=== PATIENT | female | born 1945 | race Caucasian/White ===

== ENCOUNTER 2017-01-04 13:00 | Inpatient (IN) | payer MEDICARE ==
[~2017-01-04] VITALS: Ht 152.4 cm; Wt 55.0 kg
[2017-01-11] MEDS ORDERED: COLA100C3 PO (10:13)
[2017-01-11] MEDS ORDERED: PANT40TA3 PO (10:13)
[2017-01-11] MEDS ORDERED: LISI10TA3 PO (10:13)
[2017-01-11] MEDS ORDERED: SERT-129 PO (10:13)
[2017-01-18] VITALS (7 sets, daily range): BP systolic 141–163; BP diastolic 79–92; PULSE 84–92; RESP 16–18; TEMP 97.9–98.1; O2SAT 95–99
[2017-01-18] MEDS ORDERED: DEXT 5%-NACL 0.9% 1000 ML INJ 1,000 ML IV SCH (11:45)
[2017-01-18] MEDS ORDERED: METRONIDAZOLE 500 MG/100 ML ISONTONIC SOLN IV SCH (11:45)
[2017-01-18] MEDS ORDERED: ceFAZolin 1,000 MG/NS 100 ML IV SCH ×2 (11:45)
[2017-01-18] MEDS ORDERED: ALVIMOPAN 12 MG CAPSULE - On Call PO SCH (12:00)
[2017-01-18] MEDS ORDERED: POVIDONE IODINE 5% (ANTISEPSIS KIT) 4 APPLICATIONS EACH NARE PRN (12:15)
[2017-01-18] MEDS ORDERED: SODIUM CHLORID 0.9% 500 ML IV PRN (12:15)
[2017-01-18] MEDS ORDERED: LACTATED RINGER'S 1000 ML IV PRN (12:15)
[2017-01-18] MEDS ORDERED: CHLORHEXIDINE GLUCONATE 2 % 1 PACK (2 CLOTHS) TOPICAL PRN (12:15)
[2017-01-18] MEDS ORDERED: METOPROLOL TARTRATE 25 MG TAB PO PRN (12:15)
[2017-01-18] MEDS ORDERED: INSULIN HUMAN REGULAR 1,000 UNITS/10 ML VIAL SQ PRN (12:15)
--- NOTE | 2017-01-18 12:22 | PD.HP.UP ---
H&P Update Note The Pre-Admit History and Physical Examination regarding the above named patient was reviewed (including, but not limited to, vital signs, heart, lungs, co-morbid conditions), and upon re-examination it is noted that: the patient's condition has not significantly changed since the last examination. Travis Cartwright MD Jan 18, 2017 12:22
[2017-01-18] MEDS ORDERED: FAMOTIDINE 20 MG/2 ML VIAL ONE (13:05)
[2017-01-18] MEDS ORDERED: MIDAZOLAM HCL 2 MG/2 ML VIAL ONE (13:05)
[2017-01-18] MEDS ORDERED: BUPIVACAINE HCL PF 0.5% 30 ML VIAL ONE ×2 (14:05→14:07)
[2017-01-18] MEDS ORDERED: ONDANSETRON HCL 4 MG/2 ML VIAL IV PUSH ONE (14:17)
[2017-01-18] MEDS ORDERED: LACTATED RINGER'S 1000 ML INJ 2,000 ML IV ONE (14:17)
[2017-01-18] MEDS ORDERED: PROPOFOL 200 MG/20 ML AMP IV ONE (14:17)
[2017-01-18] MEDS ORDERED: PHENYLEPH/NS 1000 MCG/10 ML SYR IV ONE (14:17)
[2017-01-18] MEDS ORDERED: NEOSTIGMINE 3 MG/3 ML SYR IV ONE (14:17)
[2017-01-18] MEDS ORDERED: MORPHINE SULFATE 4 MG/ML INJ ONE (14:50)
[2017-01-18] MEDS ORDERED: ACETAMINOPHEN 1000 MG/100 ML VIAL IV ONE (15:26)
[2017-01-18] MEDS: D5-NS + KCL 20 MEQ INJ 1,000 ML IV SCH (16:24)
[2017-01-18] MEDS ORDERED: MORPHINE SULFATE 30 MG/30 ML PCA IV SCH (16:30)
[2017-01-18] MEDS ORDERED: POTASSIUM CHLOR 40 MEQ PREMIX 100 ML IV PRN (16:30)
[2017-01-18] MEDS ORDERED: POTASSIUM CHLOR 20 MEQ PREMIX 100 ML IV PRN (16:30)
[2017-01-18] MEDS ORDERED: Post-op Orders (for Pharmacy) MISC XX ONE (16:30)
[2017-01-18] MEDS ORDERED: BENZOCAINE 6 MG/MENTHOL 10 MG LOZENGE BUCCAL PRN (16:30)
[2017-01-18] MEDS ORDERED: ENALAPRILAT 2.5 MG/2 ML VIAL IV PRN (16:30)
[2017-01-18] MEDS ORDERED: BUPIVACAINE HCL PF 0.5% 30 ML VIAL NB SCH (16:30)
[2017-01-18] MEDS ORDERED: ENALAPRILAT 1.25 MG/ML VIAL IV PRN (16:30)
[2017-01-18] MEDS ORDERED: SODIUM CHLORIDE 0.9% FLUSH 5 ML FLUSH IVF PRN (16:30)
[2017-01-18] MEDS ORDERED: NALOXONE HCL 0.4 MG/ML AMP IV PRN (16:30)
--- NOTE | 2017-01-18 16:32 | HHI.PR ---
Immediate Post Op Note Procedure Date: Jan 18, 2017 Pre Op Diagnosis: Diverticulitis, obstruction Post Op Diagnosis: same Surgeon: Travis Cartwright Manager Audit(s): Cyn Procedure: Expl lap, LAR, SBR, on-table bowel prep Findings: rock hard mass in RS, stuck to pelvic sidewall, small bowel stuck , liver nl, ut /ov nl Complications: none Specimen(s) removed: rectosigm, SB Estimated blood loss: 200cc Anesthesia: General Drains: NESSA IVF Patient to: PACU Patient Condition: Good Travis Cartwright MD Jan 18, 2017 16:32
[2017-01-18] MEDS ORDERED: D5-1/2 NS + KCL 20 MEQ INJ 1,000 ML ONE (16:43)
[2017-01-18] MEDS ORDERED: *ONDANSETRON 4 MG VIAL PERIprocedural Use ONLY ONE (16:49)
[2017-01-18] MEDS ORDERED: METOCLOPRAMIDE HCL 10 MG/2 ML VIAL ONE (17:22)
[2017-01-18] MEDS: METOCLOPRAMIDE HCL 10 MG/2 ML VIAL IVS SCH (17:39)
[2017-01-18] MEDS: SODIUM CHLORIDE 0.9% FLUSH 5 ML FLUSH IVF SCH (21:00)
[2017-01-19] VITALS (13 sets, daily range): BP systolic 91–118; BP diastolic 56–68; PULSE 85–100; RESP 16–20; TEMP 98.4–99.2; O2SAT 93–97
[2017-01-19] MEDS: KETOROLAC TROMETHAMINE 30 MG/ML (IVP) VIAL IVP PRN ×5 (00:27→23:43)
[2017-01-19] MEDS: metroNIDAZOLE 500 MG INJ 100 ML IV SCH ×3 (00:29→12:29)
[2017-01-19] MEDS: D5-NS + KCL 20 MEQ INJ 1,000 ML IV SCH ×4 (00:38→21:26)
[2017-01-19] MEDS: ONDANSETRON HCL 4 MG/2 ML VIAL IV PRN (00:38)
[2017-01-19 06:13] LABS: AUTOMATED NEUTROPHIL # 9.7 TH/MM3 (1.8-7.7); BASOPHIL % 0.3 % (0.0-2.0); HEMATOCRIT 32.7 % (35.0-46.0); HEMO FLAGS DIFF FINAL; LYMPHOCYTE # 0.5 TH/MM3 (1.0-4.8); MEAN CELL VOLUME 95.1 FL (80.0-100.0); MEAN CORPUSCULAR HEMOGLOBIN 31.1 PG (27.0-34.0); MEAN CORPUSCULAR HGB CONC 32.7 % (32.0-36.0); MONO % 6.1 % (0.0-8.0); NEUT % 88.6 % (16.0-70.0); PLATELET COUNT 290 TH/MM3 (150-450); RED BLOOD COUNT 3.43 MIL/MM3 (4.00-5.30); RED CELL DISTRIBUTION WIDTH 14.4 % (11.6-17.2)
[2017-01-19 06:48] LABS: BICARBONATE 29.5 MEQ/L (21.0-32.0); POTASSIUM 4.6 MEQ/L (3.5-5.1)
[2017-01-19] MEDS: PANTOPRAZOLE SODIUM 40 MG VIAL IVP SCH (09:00)
[2017-01-19] MEDS ORDERED: ALVIMOPAN 12 MG CAPSULE - Post-op dosing PO SCH (09:00)
[2017-01-19] MEDS: SODIUM CHLORIDE 0.9% FLUSH 5 ML FLUSH IVF SCH ×2 (09:00→21:00)
[2017-01-19] MEDS: LISINOPRIL 10 MG TAB PO SCH (09:39)
[2017-01-19] MEDS: ACETAMINOPHEN/HYDROcodone 325 MG/5 MG TAB PO PRN ×2 (09:39→21:25)
[2017-01-19] MEDS: ALVIMOPAN 12 MG CAPSULE PO SCH ×2 (09:41→21:25)
[2017-01-19] MEDS: PANTOPRAZOLE SOD 40 MG DELAYED RELEASE TAB PO SCH (09:42)
[2017-01-19] MEDS: METOCLOPRAMIDE HCL 10 MG/2 ML VIAL IVS SCH ×2 (09:42→21:24)
[2017-01-19] MEDS: SERTRALINE HCL 100 MG TAB PO SCH (09:43)
[2017-01-19] MEDS: PCA - TOTAL MG MORPHINE DELIVERED PER SHIFT SCH ×2 (14:00→21:26)
[2017-01-19] MEDS: HEPARIN SODIUM - SQ 10,000 UNITS/ML VIAL SQ SCH (16:21)
[2017-01-19] MEDS: FUROSEMIDE 20 MG/2 ML VIAL IV PUSH SCH (18:00)
--- NOTE | 2017-01-19 22:04 | HHI.PR ---
Subjective Remarks C/R Surg POD #1 afebrile, VSS UO fair NESSA mod Objective - Vital Signs Date Time Temp Pulse Resp B/P Pulse Ox O2 Delivery O2 Flow Rate FiO2 01/19/17 21:26 18 01/19/17 21:21 98.6 100 115/68 94 01/19/17 16:10 21 01/19/17 04:51 Nasal Cannula 2.00 Result Diagram: 01/19/17 0530 01/19/17 0530 Objective Remarks PE alert Abd - soft, wound dry, min tympany A/P Assessment and Plan Imp: stable post - op OOB decr IVF resp tx Travis Cartwright MD Jan 19, 2017 22:04
[2017-01-20] VITALS (7 sets, daily range): BP systolic 122–139; BP diastolic 58–75; PULSE 85–100; RESP 16–20; TEMP 98.1–100.3; O2SAT 92–97
[2017-01-20] MEDS: HEPARIN SODIUM - SQ 10,000 UNITS/ML VIAL SQ SCH ×2 (04:56→18:22)
[2017-01-20] MEDS: ACETAMINOPHEN/HYDROcodone 325 MG/5 MG TAB PO PRN ×3 (04:56→19:58)
[2017-01-20] MEDS: PCA - TOTAL MG MORPHINE DELIVERED PER SHIFT SCH (04:57)
[2017-01-20] MEDS: FUROSEMIDE 20 MG/2 ML VIAL IV PUSH SCH ×2 (05:59→18:16)
[2017-01-20 06:28] LABS: AUTOMATED NEUTROPHIL # 8.2 TH/MM3 (1.8-7.7); BASOPHIL % 0.3 % (0.0-2.0); EOSINOPHIL # 0.3 TH/MM3 (0-0.4); EOSINOPHIL % 2.8 % (0.0-4.0); HEMATOCRIT 26.2 % (35.0-46.0); HEMO FLAGS DIFF FINAL; LYMPH % 9.9 % (9.0-44.0); MEAN CELL VOLUME 95.3 FL (80.0-100.0); MEAN CORPUSCULAR HEMOGLOBIN 32.4 PG (27.0-34.0); MONO % 5.5 % (0.0-8.0); NEUT % 81.5 % (16.0-70.0); PLATELET COUNT 220 TH/MM3 (150-450); RED BLOOD COUNT 2.75 MIL/MM3 (4.00-5.30); RED CELL DISTRIBUTION WIDTH 14.7 % (11.6-17.2)
[2017-01-20 06:47] LABS: BICARBONATE 23.9 MEQ/L (21.0-32.0)
[2017-01-20] MEDS: METOCLOPRAMIDE HCL 10 MG/2 ML VIAL IVS SCH ×2 (08:58→19:58)
[2017-01-20] MEDS: SERTRALINE HCL 100 MG TAB PO SCH (08:58)
[2017-01-20] MEDS: PANTOPRAZOLE SOD 40 MG DELAYED RELEASE TAB PO SCH (08:58)
[2017-01-20] MEDS: LISINOPRIL 10 MG TAB PO SCH (08:58)
[2017-01-20] MEDS: D5-NS + KCL 20 MEQ INJ 1,000 ML IV SCH (08:59)
[2017-01-20] MEDS: SODIUM CHLORIDE 0.9% FLUSH 5 ML FLUSH IVF SCH ×2 (09:00→19:58)
[2017-01-20] MEDS: ALVIMOPAN 12 MG CAPSULE PO SCH ×2 (09:00→19:58)
[2017-01-20] MEDS: PANTOPRAZOLE SODIUM 40 MG VIAL IVP SCH (09:00)
[2017-01-20] MEDS: KETOROLAC TROMETHAMINE 30 MG/ML (IVP) VIAL IVP PRN ×2 (09:01→18:16)
--- NOTE | 2017-01-20 16:50 | HHI.PR ---
Subjective Remarks C/R Surg POD #2 afebrile, VSS UO good NESSA mod +BM Objective - Vital Signs Date Time Temp Pulse Resp B/P Pulse Ox O2 Delivery O2 Flow Rate FiO2 01/20/17 16:00 100.3 97 20 139/65 96 01/20/17 08:30 21 01/20/17 05:27 Room Air 01/19/17 04:51 2.00 Result Diagram: 01/20/17 0536 01/20/17 0536 Objective Remarks PE alert Abd - soft, wound dry, min tympany A/P Assessment and Plan Imp: OOB decr IVF resp tx adv PO Travis aCrtwright MD Jan 20, 2017 16:50
[2017-01-21] VITALS (7 sets, daily range): BP systolic 108–166; BP diastolic 69–84; PULSE 66–108; RESP 16–22; TEMP 96.8–101.2; O2SAT 94–97
[2017-01-21] MEDS: ACETAMINOPHEN/HYDROcodone 325 MG/5 MG TAB PO PRN ×4 (03:02→17:46)
[2017-01-21] MEDS: HEPARIN SODIUM - SQ 10,000 UNITS/ML VIAL SQ SCH ×2 (03:03→14:59)
[2017-01-21] MEDS: FUROSEMIDE 20 MG/2 ML VIAL IV PUSH SCH (05:14)
[2017-01-21] MEDS: KETOROLAC TROMETHAMINE 30 MG/ML (IVP) VIAL IVP PRN ×2 (06:50)
[2017-01-21] MEDS: D5-NS + KCL 20 MEQ INJ 1,000 ML IV SCH ×2 (06:52→20:12)
--- NOTE | 2017-01-21 08:44 | MP ---
cc: MITZI CHOWDARY M.D.,MK Jackson MD DATE OF SURGERY: 01/18/2017 PREOPERATIVE DIAGNOSIS: Diverticular disease with obstruction of the rectosigmoid. OPERATION: Exploratory laparotomy with proctosigmoidectomy. Low pelvic anastomosis. On table bowel prep and segmental small bowel resection, omental flank. POSTOPERATIVE DIAGNOSIS: Obstructing diverticulitis with adherent small bowel loop. SURGEON: Mitzi Chowdary MD. AEROSOL SUPERVISOR: Dr. Mk Addison. PROCEDURE The patient was placed in the supine position. After adequate general anesthesia her legs were placed in [place] stirrups and supported appropriately. The abdomen and perineum were then prepped with Betadine solution and draped in usual sterile fashion. With Dr. Addison assistance the abdomen was opened through a infraumbilical transverse incision dividing the rectus muscles with electrocautery. Exploration revealed a rock-hard mass in the rectosigmoid which was stuck down into the pelvis. There was chronic inflammatory changes but no acute abscess formation. A loop of small bowel was very densely adherent to this inflammatory mass as well. Small bowel was run from ligament of Treitz down to ileocecal valve and felt to be normal otherwise. The proximal colon was palpated and being softly distended with some air and liquid stool was unremarkable. The liver was palpated and had no masses. The stomach and duodenum were normal. The great vessels were normal caliber and only slightly calcified. First the sigmoid colon was mobilized medially by dividing along the white line of Toldt TURBT. The left ureter was identified and carefully preserved. Dissection then proceeded up the left gutter freeing the left colon off the retroperitoneum mobilizing the splenic flexure, into the lesser sac and taken to the gastrocolic omentum off the transverse colon. The right retroperitoneal space was then opened and the bowel dissected off the presacral fascia. The pedicle for the superior hemorrhoidal vessels identified and divided between Deedee's obtaining hemostasis with Vicryl ties. The left colic vessels were similarly taken for full left mobilization. Dissection then proceeded down to the pelvis mobilizing the rectosigmoid off the presacral fascia down to the pelvic floor. Anteriorly there was some dense adherent to adhesions between the inflammatory mass on the left pelvic side wall. The adnexa were freed and the bowel mobilized up out of the pelvis identifying of soft more pliable rectal segment. The proximal rectum the mesorectum was taken with electrocautery and Vicryl ties. The bowel was then divided between a pursestring suture device and a Roxanne clamp. The bowel was sized to reach the rectal pouch without tension and with good blood supply dividing the marginal artery at the appropriate point. The bowel was then divided in the proximal sigmoid between a pursestring suture device and a Roxanne clamp. The end of the bowel was sized to accept a EEA stapling anvil and this was secured with a pursestring suture. Dr. Addison inserted the EEA stapling instrument transanally under direct vision it was brought up to the end of the rectal pouch and the pursestring suture tied. The stapler was then reassembled the bowel aligned properly the staple closed and fired upon withdrawal two complete doughnuts of tissue was seen. Then Dr. Addison inserted the colonoscope and with abdominal assistance passed the scope up through the proximal colon around to the cecum, ileocecal valve was normal. No vascular abnormalities were noted within the cecum. It should be noted that prior to doing the anastomosis. The bowel was prepped with several liters of normal saline to clear the stool. Upon withdrawal the colonoscope the anastomosis was insufflated and found to be airtight. Next, attention was turned to this loop of small bowel which was very narrowed and chronically scarred from adherence to the diverticular process. It was elected to resect this piece by firing the CONNER stapler proximal and distal to the inflammatory bowel taking the mesentery between Deedee's. The bowel continuity was then restored by firing the CONNER stapler across the antimesenteric ends of the bowel closing the enterotomy with a TA 60 stapler. The mesenteric defect closed with Vicryl suture and a 3-0 Vicryl crotch suture was placed as well. The abdomen was then irrigated with normal saline. Adequate hemostasis achieved at all sites. Nayan-Maloney drain placed down into the presacral space and brought up through a stab wound in the right lower quadrant secured to the skin with a nylon suture. The omentum was passed down the left gutter and wrapped around the anastomosis. Transverse incision was then closed anatomically and two layers using #1 PDS sutures to reapproximate the respective fascial layers. The Onque catheters were placed into the rectus sheath on both sides and brought up through subcutaneous tunnels above the transverse incision. The Subcu tissues irrigated in the skin closed with a row of surgical kevin. Wound area washed with normal saline and dried, sterile dressing of Telfa and gauze applied. The patient tolerated the procedure quite well and was brought to recovery room in stable condition. The sponge and needle counts were correct at the end of the procedure. MD GEOVANNY Perales/adry /7:50 AM /7:25 AM
[2017-01-21] MEDS: ALVIMOPAN 12 MG CAPSULE PO SCH ×2 (08:56→22:02)
[2017-01-21] MEDS: PANTOPRAZOLE SOD 40 MG DELAYED RELEASE TAB PO SCH (08:56)
[2017-01-21] MEDS: LISINOPRIL 10 MG TAB PO SCH ×2 (08:56→09:00)
[2017-01-21] MEDS: SERTRALINE HCL 100 MG TAB PO SCH (08:56)
[2017-01-21] MEDS: METOCLOPRAMIDE HCL 10 MG/2 ML VIAL IVS SCH (08:57)
[2017-01-21] MEDS: SODIUM CHLORIDE 0.9% FLUSH 5 ML FLUSH IVF SCH ×2 (09:00→22:02)
[2017-01-21] MEDS: PANTOPRAZOLE SODIUM 40 MG VIAL IVP SCH (09:00)
--- NOTE | 2017-01-21 10:12 | HHI.PR ---
Subjective Remarks C/R Surg POD #3 afebrile, VSS UO good. voiding NESSA mod +BM Objective - Vital Signs Date Time Temp Pulse Resp B/P Pulse Ox O2 Delivery O2 Flow Rate FiO2 01/21/17 08:00 99.4 98 18 108/71 95 01/20/17 08:30 21 01/20/17 05:27 Room Air 01/19/17 04:51 2.00 Result Diagram: 01/20/17 0536 01/20/17 0536 Objective Remarks PE alert Abd - soft, wound dry, min tympany, On-Q dc'd A/P Assessment and Plan Imp: OOB decr IVF resp tx adv PO Travis Cartwright MD Jan 21, 2017 10:12
[2017-01-21] MEDS ORDERED: METOCLOPRAMIDE HCL 10 MG/2 ML VIAL IVS PRN (10:15)
[2017-01-21] MEDS: ACETAMINOPHEN 325 MG TAB PO PRN (17:57)
[2017-01-21] MEDS ORDERED: RESP: ALBUTEROL 2.5 MG/3 ML NEB (PRN) ONE (21:27)
[2017-01-21] MEDS: ONDANSETRON HCL 4 MG/2 ML VIAL IV PRN (22:02)
[2017-01-21] MEDS: SODIUM CHLOR 0.9% 1000 ML INJ 1,000 ML IV SCH (22:25)
[2017-01-21] MEDS: RESP: ALBUTEROL 2.5 MG/3 ML NEB (SCH) INH (23:11)
[2017-01-22] VITALS (8 sets, daily range): BP systolic 106–140; BP diastolic 56–75; PULSE 100–109; RESP 16–18; TEMP 97.1–100; O2SAT 94–96
[2017-01-22] MEDS: ACETAMINOPHEN 325 MG TAB PO PRN ×4 (00:47→15:52)
[2017-01-22] MEDS: RESP: ALBUTEROL 2.5 MG/3 ML NEB (SCH) INH ×6 (03:22→20:07)
[2017-01-22] MEDS: HEPARIN SODIUM - SQ 10,000 UNITS/ML VIAL SQ SCH ×2 (04:07→15:47)
[2017-01-22 07:42] LABS: AUTOMATED NEUTROPHIL # 13.4 TH/MM3 (1.8-7.7); BASOPHIL % 0.2 % (0.0-2.0); EOSINOPHIL # 0.2 TH/MM3 (0-0.4); EOSINOPHIL % 1.1 % (0.0-4.0); HEMATOCRIT 25.4 % (35.0-46.0); LYMPH % 3.8 % (9.0-44.0); LYMPHOCYTE # 0.5 TH/MM3 (1.0-4.8); MEAN CELL VOLUME 94.5 FL (80.0-100.0); MEAN CORPUSCULAR HEMOGLOBIN 31.7 PG (27.0-34.0); MEAN CORPUSCULAR HGB CONC 33.5 % (32.0-36.0); MONO % 3.2 % (0.0-8.0); NEUT % 91.7 % (16.0-70.0); PLATELET COUNT 303 TH/MM3 (150-450); RED BLOOD COUNT 2.69 MIL/MM3 (4.00-5.30); RED CELL DISTRIBUTION WIDTH 14.6 % (11.6-17.2); WHITE BLOOD COUNT 14.5 TH/MM3 (4.0-11.0)
[2017-01-22 07:45] LABS: HEMO FLAGS AUTO DIFF
[2017-01-22 08:05] LABS: BICARBONATE 24.7 MEQ/L (21.0-32.0); POTASSIUM 3.7 MEQ/L (3.5-5.1)
[2017-01-22] MEDS: LISINOPRIL 10 MG TAB PO SCH (08:55)
[2017-01-22] MEDS: ALVIMOPAN 12 MG CAPSULE PO SCH ×2 (08:55→20:30)
[2017-01-22] MEDS: SERTRALINE HCL 100 MG TAB PO SCH (08:55)
[2017-01-22] MEDS: PANTOPRAZOLE SOD 40 MG DELAYED RELEASE TAB PO SCH (08:55)
[2017-01-22] MEDS: SODIUM CHLORIDE 0.9% FLUSH 5 ML FLUSH IVF SCH ×2 (09:00→20:29)
[2017-01-22] MEDS: PANTOPRAZOLE SODIUM 40 MG VIAL IVP SCH (09:00)
[2017-01-22 09:49] LABS: BANDS 28 % (0-6); EOSINOPHILS 1 % (0-4); NEUTROPHIL # MANUAL DIFF 13.3 TH/MM3 (1.8-7.7); PLATELET ESTIMATE SMEAR NORMAL (NORMAL); PLATELET MORPHOLOGY NORMAL (NORMAL); POLYS (SEG NEUTROPHILS) 64 % (16-70); SCAN/DIFF FINAL DIFF MANUAL; WBC DIFF SAMPLE 100
[2017-01-22] MEDS: SODIUM CHLOR 0.9% 1000 ML INJ 1,000 ML IV SCH ×3 (09:56→21:53)
--- NOTE | 2017-01-22 10:45 | HHI.PR ---
Subjective Remarks C/R Surg POD #4 Temp 101, VSS UO fair NESSA min +BM small clear emesis Objective - Vital Signs Date Time Temp Pulse Resp B/P Pulse Ox O2 Delivery O2 Flow Rate FiO2 01/22/17 08:00 100.0 105 18 125/69 94 01/21/17 08:40 Room Air 01/20/17 08:30 21 01/19/17 04:51 2.00 Result Diagram: 01/22/17 0718 01/22/17 0718 Objective Remarks PE alert Abd - soft, wound dry, min tympany, A/P Assessment and Plan Imp: OOB incr IVF resp tx hold PO, NGT prn Travis Cartwright MD Jan 22, 2017 10:45
[2017-01-22] MEDS: ONDANSETRON HCL 4 MG/2 ML VIAL IV PRN (11:13)
[2017-01-22] MEDS: KETOROLAC TROMETHAMINE 30 MG/ML (IVP) VIAL IV PUSH PRN ×3 (11:13→23:42)
--- NOTE | 2017-01-22 11:40 | RADRPT ---
EXAM DATE/TIME: 01/22/2017 11:02 [facility] COMPARISON: CHEST PA & LAT, January 11, 2017, 10:47. INDICATIONS : Shortness of breath. Fever. MEDICAL HISTORY : Asthma. Multiple Exostoses. SURGICAL HISTORY : Colon resection. ENCOUNTER: Initial ACUITY: 1 day PAIN SCORE: 0/10 LOCATION: Bilateral chest FINDINGS: Mild right lung base atelectasis and/or infiltrate is seen. There is no appreciable pleural effusion for technique. Heart and mediastinum are unremarkable. Lucencies present underneath both hemidiaphr agms. Possibility of free intraperitoneal air should be entertained although the lucency on the right could be related to the underlying infiltrate or on the left side possibly the patient's stomach. CONCLUSION: Mild right lung base atelectasis and/or infiltrate is seen and findings suspicious for free intraperitoneal air and may consider decubitus examination or possibly CT examination of th e abdomen and pelvis to further characterize. Ousmane Campos MD on January 22, 2017 at 11:36 Board Certified Radiologist. This report was verified electronically.
[2017-01-22] MEDS: D5-NS + KCL 20 MEQ INJ 1,000 ML IV SCH (20:31)
[2017-01-22 20:47] LABS: BLOOD, URINE TRACE (NEG); COMMENT (UR) CULTURE INDICATED; CULTURE IF INDICATED CULTURE INDICATED; GLUCOSE,URINE TRACE mg/dL (NEG); KETONE, URINE TRACE mg/dL (NEG); MUCUS URINE FEW /lpf (OCC); NITRITE,URINE NEG (NEG); SQUAMOUS EPITHELIAL CELL URINE 4 /hpf (0-5); URINE COLOR YELLOW (YELLW/STRAW)
[2017-01-23] VITALS: BP 140/64; PULSE 110; RESP 22; TEMP 99.8; O2SAT 94
[2017-01-23] MEDS: SODIUM CHLOR 0.9% 1000 ML INJ 1,000 ML IV SCH ×3 (03:05→16:52)
[2017-01-23 04:00] VITALS: BP 147/73; PULSE 99; RESP 22; TEMP 98.2; O2SAT 96
[2017-01-23] MEDS: RESP: ALBUTEROL 2.5 MG/3 ML NEB (SCH) INH ×3 (04:00→08:00)
[2017-01-23] MEDS: HEPARIN SODIUM - SQ 10,000 UNITS/ML VIAL SQ SCH ×2 (04:03→14:40)
[2017-01-23] MEDS: KETOROLAC TROMETHAMINE 30 MG/ML (IVP) VIAL IV PUSH PRN ×3 (05:44→21:34)
[2017-01-23 08:00] VITALS: BP 137/69; PULSE 100; RESP 17; TEMP 98.7; O2SAT 95
[2017-01-23] MEDS: SODIUM CHLORIDE 0.9% FLUSH 5 ML FLUSH IVF SCH ×2 (09:00→20:01)
[2017-01-23] MEDS: PANTOPRAZOLE SODIUM 40 MG VIAL IVP SCH (09:00)
[2017-01-23] MEDS: PANTOPRAZOLE SOD 40 MG DELAYED RELEASE TAB PO SCH (09:28)
[2017-01-23] MEDS: SERTRALINE HCL 100 MG TAB PO SCH (09:28)
[2017-01-23] MEDS: LISINOPRIL 10 MG TAB PO SCH (09:28)
[2017-01-23] MEDS: ALVIMOPAN 12 MG CAPSULE PO SCH ×2 (09:28→20:01)
[2017-01-23] MEDS ORDERED: RESP: ALBUTEROL 2.5 MG/IPRATROPIUM 0.5 MG NEB (PRN) NEB (11:15)
[2017-01-23 12:00] VITALS: BP 151/76; PULSE 101; RESP 18; TEMP 98.1; O2SAT 96
[2017-01-23] MEDS: RESP: ALBUTEROL 2.5 MG/IPRATROPIUM 0.5 MG NEB (SCH) NEB ×2 (12:18→20:54)
--- NOTE | 2017-01-23 14:43 | HHI.PR ---
Subjective Remarks C/R Surg POD #5 Temp down, VSS UO good NESSA min +BM X mult neida liq , some reflux Objective - Vital Signs Date Time Temp Pulse Resp B/P Pulse Ox O2 Delivery O2 Flow Rate FiO2 01/23/17 12:00 98.1 101 18 151/76 96 01/22/17 20:09 21 01/21/17 08:40 Room Air Result Diagram: 01/22/17 0718 01/22/17 0718 Objective Remarks PE alert Abd - soft, wound dry, min tympany, A/P Assessment and Plan Imp: OOB incr IVF, taper resp tx adv PO Travis Cartwright MD Jan 23, 2017 14:43
[2017-01-23 16:00] VITALS: BP 151/92; PULSE 100; RESP 18; TEMP 100; O2SAT 97
[2017-01-23] MEDS: SUCRALFATE 1 GM/10 ML CUP PO SCH ×2 (16:50→21:34)
[2017-01-23] MEDS ORDERED: ACETAMINOPHEN 325 MG TAB PO PRN (20:00)
[2017-01-23] MEDS: ACETAMINOPHEN 325 MG TAB PO PRN (20:01)
[2017-01-23 20:14] VITALS: BP 173/74; PULSE 93; RESP 18; TEMP 99; O2SAT 93
[2017-01-24 00:20] VITALS: BP 110/69; PULSE 82; RESP 17; TEMP 96.6; O2SAT 94
[2017-01-24] MEDS: KETOROLAC TROMETHAMINE 30 MG/ML (IVP) VIAL IV PUSH PRN ×4 (03:56→22:21)
[2017-01-24] MEDS: HEPARIN SODIUM - SQ 10,000 UNITS/ML VIAL SQ SCH ×2 (03:56→15:55)
[2017-01-24] MEDS: SODIUM CHLOR 0.9% 1000 ML INJ 1,000 ML IV SCH ×3 (04:01→19:55)
[2017-01-24] MEDS: SUCRALFATE 1 GM/10 ML CUP PO SCH ×3 (05:06→19:53)
[2017-01-24 08:00] VITALS: BP 159/56; PULSE 90; RESP 18; TEMP 99.2; O2SAT 93
[2017-01-24] MEDS: RESP: ALBUTEROL 2.5 MG/IPRATROPIUM 0.5 MG NEB (SCH) NEB ×3 (08:10→20:06)
[2017-01-24] MEDS: SODIUM CHLORIDE 0.9% FLUSH 5 ML FLUSH IVF SCH ×2 (09:00→19:54)
[2017-01-24] MEDS: PANTOPRAZOLE SODIUM 40 MG VIAL IVP SCH (09:00)
[2017-01-24] MEDS: ALVIMOPAN 12 MG CAPSULE PO SCH ×2 (09:09→19:54)
[2017-01-24] MEDS: SERTRALINE HCL 100 MG TAB PO SCH (09:09)
[2017-01-24] MEDS: LISINOPRIL 10 MG TAB PO SCH (09:09)
[2017-01-24] MEDS: PANTOPRAZOLE SOD 40 MG DELAYED RELEASE TAB PO SCH (09:09)
[2017-01-24 12:00] VITALS: BP 140/76; PULSE 89; RESP 18; TEMP 99; O2SAT 94
[2017-01-24] MEDS: ACETAMINOPHEN 325 MG TAB PO PRN ×2 (13:33→19:55)
[2017-01-24 16:30] VITALS: BP 170/75; PULSE 94; RESP 17; TEMP 99.8; O2SAT 95
--- NOTE | 2017-01-24 18:38 | HHI.PR ---
Subjective Remarks C/R Surg POD #6 Temp down, VSS UO good +BM X mult neida liq , some reflux Objective - Vital Signs Date Time Temp Pulse Resp B/P Pulse Ox O2 Delivery O2 Flow Rate FiO2 01/24/17 16:30 99.8 94 17 170/75 95 01/22/17 20:09 21 01/21/17 08:40 Room Air Result Diagram: 01/22/17 0718 01/22/17 0718 Objective Remarks PE alert Abd - soft, wound dry, min tympany, A/P Assessment and Plan Imp: OOB resp tx adv PO dc plans Travis Cartwright MD Jan 24, 2017 18:38
[2017-01-24] MEDS ORDERED: SUCR1S PO (18:41)
[2017-01-24 20:15] VITALS: BP 160/69; PULSE 96; RESP 17; TEMP 100.4; O2SAT 94
[2017-01-24 22:03] VITALS: TEMP 98.2
[2017-01-25 00:35] VITALS: BP 146/70; PULSE 92; RESP 18; TEMP 98.6; O2SAT 92
[2017-01-25] MEDS: ACETAMINOPHEN 325 MG TAB PO PRN (03:36)
[2017-01-25] MEDS: HEPARIN SODIUM - SQ 10,000 UNITS/ML VIAL SQ SCH (03:36)
[2017-01-25 04:11] VITALS: BP 158/80; PULSE 99; RESP 17; TEMP 99.4; O2SAT 92
[2017-01-25] MEDS: SUCRALFATE 1 GM/10 ML CUP PO SCH ×2 (05:22→13:36)
[2017-01-25] MEDS: KETOROLAC TROMETHAMINE 30 MG/ML (IVP) VIAL IV PUSH PRN (05:22)
[2017-01-25 08:00] VITALS: BP 162/82; PULSE 89; RESP 20; TEMP 98.2; O2SAT 93
[2017-01-25 08:32] VITALS: O2SAT 93
[2017-01-25] MEDS: RESP: ALBUTEROL 2.5 MG/IPRATROPIUM 0.5 MG NEB (SCH) NEB ×2 (08:32→11:52)
[2017-01-25] MEDS: PANTOPRAZOLE SODIUM 40 MG VIAL IVP SCH (09:00)
[2017-01-25] MEDS: SODIUM CHLORIDE 0.9% FLUSH 5 ML FLUSH IVF SCH (09:00)
[2017-01-25] MEDS: ALVIMOPAN 12 MG CAPSULE PO SCH (09:27)
[2017-01-25] MEDS: PANTOPRAZOLE SOD 40 MG DELAYED RELEASE TAB PO SCH (09:27)
[2017-01-25] MEDS: SERTRALINE HCL 100 MG TAB PO SCH (09:27)
[2017-01-25] MEDS: LISINOPRIL 10 MG TAB PO SCH (09:27)
[2017-01-25] MEDS: SODIUM CHLOR 0.9% 1000 ML INJ 1,000 ML IV SCH (11:50)
[2017-01-25 12:00] VITALS: BP 163/85; PULSE 95; RESP 20; TEMP 99.7; O2SAT 92
[2017-01-25] MEDS ORDERED: traMADol HCL 50 MG TAB PO PRN (12:00)
--- NOTE | 2017-03-19 21:52 | MD ---
cc: MITZI CHOWDARY M.D., SANDRA L. MD ADMISSION DATE: 01/18/2017 DISCHARGE DATE: 01/25/2017 ADMISSION DIAGNOSIS Diverticulitis with sigmoid obstruction. PROCEDURE On 01/18/2017 exploratory laparotomy with proctosigmoidectomy, low pelvic anastomosis, on-table bowel prep and segmental small bowel resection omental flap. DISCHARGE DIAGNOSES Obstructing diverticulitis. HISTORY OF PRESENT ILLNESS Ms. Sims is a 71-year-old female seen over the last several weeks for progressive abdominal pain and cramps. Workup revealed a tight stricture and narrowing of the rectosigmoid felt to be secondary to diverticular disease. The patient does have very small somewhat frequent stools. Denies significant abdominal distension but does have gas, cramping and abdominal pain. Denies any nausea or vomiting. No rectal bleeding or melena. Appetite has been only fair. She denies any weight loss. Please see admitting history and physical for complete past medical and surgical history. PHYSICAL EXAMINATION GENERAL: Pertinent physical, very pleasant, thin, older female in no acute distress. ABDOMEN: Soft and slightly distended. A little tympany. No rebound or guarding or any masses noted. RECTAL: Anal inspection revealed benign canal. Digital exam revealed fair to good tone with some pelvic tenderness and fullness. HOSPITAL COURSE After admission, the patient was taken to the operating room on January 18, 2017 at which point she underwent an exploratory laparotomy with proctosigmoidectomy, low pelvic anastomosis, on-table bowel prep and segmental small bowel resection with omental flap to the pelvis. She was found to have a significant amount of diverticular obstruction with hardening and fibrosis in the rectosigmoid. A loop of small bowel was stuck very densely to this inflammatory process. She tolerated the procedure quite well. Initially she was stabilized in the intensive care unit. Her bowel function returned quite promptly and her diet was advanced accordingly. Her IV fluids were tapered. She did require some physical therapy for postop weakness. She was eating well enough, strong enough with self ambulation to consider discharge home on January 25, 2017. Final pathology report did reveal an extensive segment of rectosigmoid with extensive diverticulosis and inflammatory changes consistent with abscess formation. A segment of small intestine showed chronic inflammation but no signs of malignancy. DISCHARGE INSTRUCTIONS The patient was discharged eating a regular diet. She was encouraged to ambulate daily, avoiding any heavy lifting or straining. All preop medications were to be resumed. The patient will get some physical therapy while at home and continue rehab therapy. She will be seen in the office in one week time for routine follow-up. Any problems prior to the scheduled office visit she was instructed to call for more urgent attention. MD GEOVANNY Perales/KIKI /11:29 PM /9:40 PM
== END 2017-01-25 15:57 | DRG 330 ==
LOC: HSDI 01-18 11:00 → HCIN 01-18 18:05 → N06B 01-20 05:51
PROVIDERS: ADMIT Colon & Rectal Surgery; ATTEND Colon & Rectal Surgery
PROC: 0DBN0ZZ Excision of Sigmoid Colon, Open Approach (ICD-10-PCS; 2017-01-18)
PROC: 0DB80ZZ Excision of Small Intestine, Open Approach (ICD-10-PCS; 2017-01-18)
PROC: 0DJD8ZZ Inspection of Lower Intestinal Tract, Via Natural or Artificial Opening Endoscopic (ICD-10-PCS; 2017-01-18)
PROC: 0DBP0ZZ Excision of Rectum, Open Approach (ICD-10-PCS; principal; 2017-01-18 13:20)
DX: K57.32 Diverticulitis of large intestine without perforation or abscess without bleeding (principal); K56.69 Other intestinal obstruction; K21.9 Gastro-esophageal reflux disease without esophagitis
CPT/HCPCS: 71010; 80048; 81001; 85007; 85025; 85027; 86850; 86900; 86901; 87086; 88305; 88307; 88331; 94150; 94640; 94664; J0131; J0690; J1644; J1885; J1940; J2250; J2270; J2370; J2405; J2710; J2765; J3010; J3480; J7030; J7120; J7613

== ENCOUNTER → 2017-01-11 | Outpatient (CLI) | payer MEDICARE ==
[~2017-01-11] MED LIST: CARA1TAB6 PO; COLA100C3 PO; FERR325T PO; FURO20TA PO; LISI-515 PO; LISI10TA3 PO; LORT5TAB PO; METO10TA PO; PANT40TA3 PO; PREVALITE PO; PROT40TA PO; SERT-129 PO; SERT50 PO; SUCR1S PO
[2017-01-11 10:18] LABS: AUTOMATED NEUTROPHIL # 2.7 TH/MM3 (1.8-7.7); BASOPHIL % 0.8 % (0.0-2.0); EOSINOPHIL # 0.3 TH/MM3 (0-0.4); EOSINOPHIL % 6.4 % (0.0-4.0); HEMATOCRIT 41.4 % (35.0-46.0); HEMO FLAGS DIFF FINAL; LYMPH % 29.6 % (9.0-44.0); LYMPHOCYTE # 1.5 TH/MM3 (1.0-4.8); MEAN CELL VOLUME 95.4 FL (80.0-100.0); MEAN CORPUSCULAR HEMOGLOBIN 31.1 PG (27.0-34.0); MEAN CORPUSCULAR HGB CONC 32.6 % (32.0-36.0); MONO % 7.9 % (0.0-8.0); NEUT % 55.3 % (16.0-70.0); PLATELET COUNT 296 TH/MM3 (150-450); RED BLOOD COUNT 4.34 MIL/MM3 (4.00-5.30); RED CELL DISTRIBUTION WIDTH 15.1 % (11.6-17.2); WHITE BLOOD COUNT 4.9 TH/MM3 (4.0-11.0)
[2017-01-11 10:30] LABS: APTT (PATIENT) 24.6 SEC (24.3-30.1); PROTHROMBIN TIME - PATIENT 10.7 SEC (9.8-11.6)
[2017-01-11 10:34] LABS: BACTERIA, URINE RARE /hpf; BLOOD, URINE NEG (NEG); GLUCOSE,URINE NEG (NEG); KETONE, URINE NEG (NEG); MUCUS URINE FEW /lpf (OCC); NITRITE,URINE NEG (NEG); PH, URINE 5.5 (5.0-8.5); SQUAMOUS EPITHELIAL CELL URINE 3 /hpf (0-5); URINE COLOR YELLOW (YELLW/STRAW)
[2017-01-11 10:35] LABS: COMMENT (UR) CULT NOT INDICATED; CULTURE IF INDICATED CULT NOT INDICATED
[2017-01-11 10:41] LABS: ALT (GPT) 19 U/L (10-53); ANION GAP 6 MEQ/L (5-15); AST (GOT) 17 U/L (15-37); BICARBONATE 33.2 MEQ/L (21.0-32.0); BLOOD UREA NITROGEN 13 MG/DL (7-18); CHLORIDE 102 MEQ/L (98-107); GLOMERULAR FILTRATION RATE 51 ML/MIN (>89); GLUCOSE,FASTING 105 MG/DL (74-99); POTASSIUM 4.1 MEQ/L (3.5-5.1); SODIUM (NA) 141 MEQ/L (136-145)
[2017-01-11 10:43] LABS: ALKALINE PHOSPHATASE 84 U/L (45-117); TOTAL BILIRUBIN ADULT 0.5 MG/DL (0.2-1.0)
--- NOTE | 2017-01-11 11:24 | RADRPT ---
EXAM DATE/TIME: 01/11/2017 10:47 [facility] COMPARISON: No previous studies available for comparison. INDICATIONS : Evaluate for pneumonia, pneumothorax or communicable disease. Pre op colon resection. MEDICAL HISTORY : asthma SURGICAL HISTORY : None. ENCOUNTER: Initial ACUITY: 1 day PAIN SCORE: 0/10 LOCATION: Bilateral chest FINDINGS: PA and lateral views of the chest demonstrate the lungs to be symmetrically aerated without evidence of mass, infiltrate or effusion. There are mild chronic interstitial changes. The cardiomediastinal contours are unremarkable. Osseous structures demonstrate degenerative changes within the spine. CONCLUSION: 1. Mild chronic interstitial changes. No acute abnormality. Freddy Mahmood MD on January 11, 2017 at 11:21 Board Certified Radiologist. This report was verified electronically.
--- NOTE | 2017-01-11 12:03 | EKG ---
Date Performed: 01/11/2017 Time Performed: 10:06:36 PTAGE: 71 years EKG: Sinus rhythm NORMAL ECG PREVIOUS TRACING : 11/22/2008 11.51 DOCTOR: Deonte Cramer Interpretating Date/Time 01/11/2017 12:02:05
== END ==
LOC: CPRE 09:38
PROVIDERS: ATTEND Colon & Rectal Surgery
DX: K56.69 Other intestinal obstruction (principal); Z01.810 Encounter for preprocedural cardiovascular examination; Z01.811 Encounter for preprocedural respiratory examination; Z01.812 Encounter for preprocedural laboratory examination
CPT/HCPCS: 36415; 71020; 80053; 81001; 85025; 85610; 85730; 93005

== ENCOUNTER 2017-02-08 15:56 | Observation (INO) | payer MEDICARE ==
[~2017-02-08] VITALS: Ht 152.4 cm; Wt 57.6 kg
[~2017-02-08 15:56] MED LIST changes: -CARA1TAB6 PO; -COLA100C3 PO; -FERR325T PO; -FURO20TA PO; -LISI-515 PO; -LORT5TAB PO; -METO10TA PO; -PREVALITE PO; -PROT40TA PO; -SERT50 PO
[2017-02-08 16:04] VITALS: BP 158/82; PULSE 102; RESP 20; TEMP 98.4; O2SAT 97
[2017-02-08] MEDS ORDERED: PILL SPLITTER OTHER PRN (16:30)
[2017-02-08] MEDS ORDERED: FUROSEMIDE 20 MG/2 ML VIAL IV PUSH SCH (16:45)
[2017-02-08 17:33] LABS: BASOPHIL # 0.2 TH/MM3 (0-0.2); BASOPHIL % 1.2 % (0.0-2.0); EOSINOPHIL # 0.3 TH/MM3 (0-0.4); EOSINOPHIL % 1.7 % (0.0-4.0); HEMATOCRIT 24.4 % (35.0-46.0); LYMPH % 9.8 % (9.0-44.0); LYMPHOCYTE # 1.6 TH/MM3 (1.0-4.8); MEAN CELL VOLUME 91.4 FL (80.0-100.0); MEAN CORPUSCULAR HEMOGLOBIN 29.5 PG (27.0-34.0); MEAN CORPUSCULAR HGB CONC 32.3 % (32.0-36.0); MONO % 3.3 % (0.0-8.0); PLATELET COUNT 787 TH/MM3 (150-450); RED BLOOD COUNT 2.67 MIL/MM3 (4.00-5.30); RED CELL DISTRIBUTION WIDTH 16.1 % (11.6-17.2); WHITE BLOOD COUNT 16.6 TH/MM3 (4.0-11.0)
[2017-02-08 17:37] LABS: HEMO FLAGS AUTO DIFF
[2017-02-08] MEDS: METOCLOPRAMIDE HCL 10 MG TAB PO SCH ×2 (17:47→21:19)
[2017-02-08] MEDS: SUCRALFATE 1 GM TAB PO SCH ×2 (17:47→21:19)
[2017-02-08 18:26] LABS: METAMYELOCYTES 1 % (0-1); NEUTROPHIL # MANUAL DIFF 15.1 TH/MM3 (1.8-7.7); POLYS (SEG NEUTROPHILS) 90 % (16-70); STOMATOCYTES 1+ (NORMAL); WBC DIFF SAMPLE 100
[2017-02-08 18:27] LABS: PLATELET ESTIMATE SMEAR HIGH (NORMAL); PLATELET MORPHOLOGY NORMAL (NORMAL); SCAN/DIFF FINAL DIFF MANUAL
[2017-02-08 19:07] LABS: TRANSFERRIN IRON PROFILE 146 MG/DL (200-360)
[2017-02-08 20:00] VITALS: BP 135/72; PULSE 99; RESP 18; TEMP 98.7; O2SAT 96
--- NOTE | 2017-02-08 20:38 | MH ---
cc: JULIO C DIAZ M.D. DATE OF ADMISSION 02/08/2017 CHIEF COMPLAINT Severe fatigue, anemia. ADMISSION DIAGNOSIS Symptomatic anemia. HISTORY OF PRESENT ILLNESS Ms. Sims is a 71-year-old white female well-known to me from the office who underwent exploratory laparotomy on January 18, [address] Cartwright. She was found to have a walled off perforated diverticulum with extensive inflammation and adhesions around the area of bowel. She had sections of bowel removed. There was no cancer within the segments. She was reapproximated and had a postop ileus for several days afterwards. She was discharged to [facility] on January 25, 2017 and has been there since that time. Prior to her surgery her hemoglobin was 10.9. Post operatively she dropped to 8.5 and had remained stable until this past week when her hemoglobin dropped to 7.5. She has had a significant postop course of considerable nausea, burping, heartburn, chest discomfort, general malaise. She has noted some irregular bowel movements. She states it feels as though something gets stuck. She had requested stool softeners but then she had very loose and uncontrollable stools, so those were stopped. She apparently has been having bowel movements several times per day. Since that time she denies any melena or hematochezia. However, is a poor historian regarding her habits. Overall she states that she feels terrible. She is very weak. She has no appetite. She feels like she cannot eat food but has been doing slightly better in the past two days. She continues to have epigastric and lower abdominal pain. She was subsequently brought to the hospital for transfusions as I was unable to get her scheduled for an outpatient transfusion for over a week. She is having mild tachycardia, fatigue and hemoglobin dropped to 7.5 as an outpatient. PAST MEDICAL HISTORY Significant for: 1. Asthma. 2. Menopausal status. 3. B12 deficiency. 4. Hyperlipidemia. 5. Hypertension. 6. Gastroesophageal reflux disease. 7. Sciatica. 8. Diverticulitis. 9. Recent perforated diverticulum with scarring. 10. Hearing loss. 11. Recent onset of tachycardia. 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 PAST SURGICAL HISTORY 1. Tonsillectomy, adenoidectomy. 2. Cholecystectomy. 3. Appendectomy. 4. D&C 5. Right foot bunion and hammertoes fixed. 6. section. 7. Perforated diverticulum resection January 18, 2017. SOCIAL HISTORY She is single. She last worked in 2008 at [employer] in the [employer] department. She has wine occasionally. She has a former 1/4 pack per day history for 10 years. She quit many years ago. She does still have occasional marijuana use. MEDICATIONS 1. Zoloft 100 mg daily. 2. Protonix 40 mg daily. 3. Lisinopril 10 mg daily. 4. Ventolin p.r.n. shortness of breath. 5. Carafate 1 gram p.o. q.i.d. 6. Iron sulfate 325 mg daily. 7. Reglan 5 mg p.o. q.a.c. and q.h.s. 8. Lasix 20 mg daily for peripheral edema. ALLERGIES BEXTRA CAUSED BLOATING. CRESTOR MYALGIA. FAMOTIDINE STOMACH UPSET. LIPITOR DIARRHEA. LOVASTATIN LEG CRAMPS. PENICILLIN RASH. PRAVACHOL ABDOMINAL CRAMPS. PROTONIX SHE STATED INITIALLY IT DID NOT WORK BUT SHE HAS BEEN ON IT AND HAS BEEN DOING FINE. ZOCOR CAUSED DIARRHEA. FAMILY HISTORY Daughter had exostoses. Dad at age 71 with an myocardial infarction. History of bypass surgery. Mom at age 85 with Alzheimer's. She has a son with bipolar disorder. Another son who had the exostoses of the bones. Another son who is healthy. IMMUNIZATIONS She had her Pneumovax 23 in March of 2012. Prevnar December of 2015. She had a flu vaccine 07/04/2016. She has been seeing Dr. Ibanez in GI and recently Dr. Cartwright in colorectal. REVIEW OF SYSTEMS No changes in vision. She has noted some hearing loss. No sore throats. No nasal congestion or discharge. No neck discomfort. She notes no chest discomfort or cough. No shortness of breath. She has mostly been sedentary. Doing the physical therapy is h hard, she feels like she needs a break from the physical therapy so she gain her strength. She notes diffuse abdominal discomfort mostly to the epigastrium and lower abdomen. She has chronic low back and joint pain that is unchanged. She denies any dysuria but she notes a lower abdominal strange sensation periodically while having bowel movements. She denies any melena or hematochezia. She still notes a sensation of feeling like something is getting stuck when she has to have a bowel movement. Not having sensation of sticking with swallowing but getting significant reflux. However, it is still better than it was initially after her surgery. She gets frequent burping. She has had lower extremity edema over the past several days but it is significantly better now after using the NEELAM hose and Lasix for the past few days. She was evaluated with ultrasound of lower extremities yesterday that was negative for DVT. LABORATORY DATA At [facility] yesterday showed a hemoglobin of 7.5. I had started her on iron sulfate 325 mg daily, just the other day. OBJECTIVE VITAL SIGNS: Temperature 98.4, heart rate 102, respiratory rate 20, blood pressure 158/82. O2 saturation 97% on room air. GENERAL: She is an elderly white female appearing fatigued, laying in bed. She had to get to go to the bathroom while I was there and was able to transfer herself with one person assist to get out of bed. She is generally weak and unsteady, fatigued and slow in her movements which is not her norm. HEENT: Her pupils were equal and reactive. Oropharynx benign. Fair dentition. NECK: Supple without lymphadenopathy. CARDIOVASCULAR: Was mildly tachycardic. No murmurs. LUNGS: Clear to auscultation bilaterally. No wheezes, no rhonchi. Mildly diminished bases. ABDOMEN: With positive bowel sounds. She is wearing an abdominal binder. She is diffusely tender throughout. Her scar was not evaluated at this time as she had nursing in the room as well as family. EXTREMITIES: Her lower extremities had bilateral NEELAM hose in place. She did not appear to have calf or lower leg swelling but she was edematous to the dorsum of feet. Yesterday I had seen her at [facility] and she had a small, scabbed lesion to her left buttock. It was not vesicular. It was not open. She had some erythema between the buttocks and encouraged to change position frequently. LABORATORY DATA Labs at the hospital showed a white count of 16.6, hemoglobin of 7.9, platelets of 787 which is higher than her norm. Neutrophils of 90%, lymphocytes 7%. She did have stomatocytes and high platelets. Iron profile showed a percent saturation of 9.8% with a total iron of 20. ASSESSMENT/PLAN 1. Symptomatic anemia. Hemoglobin is 7.9. Tachycardia. General malaise and fatigue I have admitted her under observation for 2 units of packed red blood cell transfusion. I will check a stool guaiac x3 and see if we need to re-evaluate her intestinal status at this point. Will try to evaluate her stools during this time as she is really a poor historian. I am not able to gather exactly what she is having as far as bowel movements. We will try to get her eating a little bit better. 2. Gastroesophageal reflux disease. She is on Protonix and sucralfate. Seems to be helping. She is having significant constipation and lack of GI motility. Initially after surgery I had placed her on Reglan 5 mg q.i.d. which does seem to be helping somewhat. 3. Hypothyroidism. Will continue her Synthroid. 4. Hypertension. Her blood pressure is slightly high today. We will check how she does overnight and after transfusion. Monitor. We can increase her lisinopril if needed. 5. Iron deficiency. I have added oral iron supplementation. 6. She has a history of vitamin B12 deficiency. I will add a B12 level to her labs for the morning and supplement if needed. Hopefully we can discharge her back to rehab in the morning. 7. MD ALICIA Guzman/KIKI /7:22 PM /7:50 PM
[2017-02-08] MEDS ORDERED: SERTRALINE HCL 100 MG TAB PO SCH (21:00)
[2017-02-08 21:09] LABS: BLOOD, URINE SMALL (NEG); GLUCOSE,URINE NEG (NEG); KETONE, URINE NEG (NEG); NITRITE,URINE NEG (NEG)
[2017-02-08 21:12] LABS: URINE COLOR STRAW (YELLW/STRAW)
[2017-02-08 21:13] LABS: COMMENT (UR) CULT NOT INDICATED; CULTURE IF INDICATED CULT NOT INDICATED; RBC, URINE 0-3 /hpf (0-3); SQUAMOUS EPITHELIAL CELL URINE 0-5 /hpf (0-5); WBC, URINE 0-2 /hpf (0-5)
[2017-02-08 21:30] VITALS: BP 147/77; PULSE 100; RESP 19; TEMP 98.8; O2SAT 97
[2017-02-09] VITALS (7 sets, daily range): BP systolic 153–166; BP diastolic 73–86; PULSE 88–106; RESP 16–20; TEMP 97.2–99.1; O2SAT 91–96
[2017-02-09] MEDS: METOCLOPRAMIDE HCL 10 MG TAB PO SCH ×3 (06:19→17:44)
[2017-02-09] MEDS: SUCRALFATE 1 GM TAB PO SCH ×3 (06:19→16:00)
--- NOTE | 2017-02-09 08:35 | HHI.FPPN ---
Subjective Remarks Initially stated she didn't receive her transfusions last PM. Notes she slept in the recliner chair as the bed was too hard to get out of to get to the commode. Notes 2 stools over night, not sure if it was sent to check for blood. States she notified the staff. No CP, no SOB, wasn't aware of feeling febrile. Notes stomach still sore, not as bad. Objective Vitals Vital Signs Date Time Temp Pulse Resp B/P Pulse Ox O2 Delivery O2 Flow Rate FiO2 02/09/17 06:00 98.0 98 20 166/76 91 02/09/17 01:30 98.7 106 18 153/82 93 02/09/17 00:00 99.1 99 18 161/81 93 02/08/17 21:30 98.8 100 19 147/77 97 02/08/17 20:00 98.7 99 18 135/72 96 02/08/17 16:04 98.4 102 20 158/82 97 I/O 02/08/17 02/08/17 02/08/17 02/09/17 02/09/17 02/09/17 07:00 15:00 23:00 07:00 15:00 23:00 Intake Total 240 ml 743 ml Balance 240 ml 743 ml Intake Oral 240 ml 120 ml IV Total 56 ml Packed Cells 567 ml # Voids 6 6 # Bowel Movements 1 1 Result Diagram: 02/08/17 0120 Objective Remarks Gen: sitting in chair, slow in movement and speech but with better color to her cheeks, seems a bit more energetic this AM--I again questioned if she got her blood transfusion and she stated yes that was why she was up urinating all night. CV: RRR, still mildly tachy Abd: soft, lifted the abdominal binder and she has a bandage over her incision site, no drainage, no surrounding erythema. mildly tender to the epigastrum but much better than last week Ext: no edema this AM, toes without lesions Urinary Catheter: No Vascular Central Line Catheter: No A/P Problem List: (1) Symptomatic anemia Status: Acute Plan: She apparently did get her 2 units of PRBC (not listed in blood bank). Pending labs that are being drawn now and pending stool guaiac testing. Discharge planning dependent on those results. She looks a bit better today. I 'd like to see her up and moving and see how she feels prior to discharge back to [facility] (2) Hypertension Status: Chronic Plan: increase lisinopril to 20mg per day (3) Tachycardia Status: Acute Plan: likely due to anemia, illness. (4) S/P colon resection Status: Acute Plan: Just had surgery 01/2017. Still recovering, just not feeling right and prolonged recovery. Just now starting to be able to eat (notes she did eat some salmon and something else last PM). Seeing Dr. Cartwright. Problem Qualifiers (1) Hypertension: Qualified Code: I10 - Essential hypertension Luisa Najera MD February 09, 2017 08:35
[2017-02-09] MEDS ORDERED: LISINOPRIL 20 MG TAB PO SCH (09:00)
[2017-02-09] MEDS ORDERED: LISINOPRIL 10 MG TAB PO SCH (09:00)
[2017-02-09] MEDS ORDERED: PANTOPRAZOLE SOD 40 MG DELAYED RELEASE TAB PO SCH (09:00)
[2017-02-09] MEDS ORDERED: FERROUS SULFATE 325 MG (65 MG ELEMENTAL IRON) TAB PO SCH (09:00)
[2017-02-09 09:07] LABS: AUTOMATED NEUTROPHIL # 10.5 TH/MM3 (1.8-7.7); BASOPHIL # 0.4 TH/MM3 (0-0.2); BASOPHIL % 2.8 % (0.0-2.0); EOSINOPHIL # 0.2 TH/MM3 (0-0.4); EOSINOPHIL % 1.2 % (0.0-4.0); HEMATOCRIT 33.4 % (35.0-46.0); LYMPH % 7.7 % (9.0-44.0); MEAN CELL VOLUME 89.4 FL (80.0-100.0); MEAN CORPUSCULAR HEMOGLOBIN 28.9 PG (27.0-34.0); MEAN CORPUSCULAR HGB CONC 32.3 % (32.0-36.0); MONO % 6.2 % (0.0-8.0); NEUT % 82.1 % (16.0-70.0); PLATELET COUNT 659 TH/MM3 (150-450); RED BLOOD COUNT 3.74 MIL/MM3 (4.00-5.30); RED CELL DISTRIBUTION WIDTH 16.1 % (11.6-17.2); WHITE BLOOD COUNT 12.9 TH/MM3 (4.0-11.0)
[2017-02-09 09:08] LABS: HEMO FLAGS AUTO DIFF
[2017-02-09 09:38] LABS: PLATELET ESTIMATE SMEAR HIGH (NORMAL); PLATELET MORPHOLOGY NORMAL (NORMAL); SCAN/DIFF AUTO DIFF CONFIRMED
[2017-02-09] MEDS ORDERED: PANT40TA3 PO (16:40)
[2017-02-09] MEDS ORDERED: CARA1TAB6 PO (16:40)
[2017-02-09] MEDS ORDERED: FURO20TA PO (16:40)
[2017-02-09] MEDS ORDERED: LISI-515 PO (16:40)
[2017-02-09] MEDS ORDERED: METO10TA PO (16:40)
[2017-02-09] MEDS ORDERED: FERR325T PO (16:40)
--- NOTE | 2017-02-09 16:44 | HHI.DS ---
Discharge Summary Admission Date February 08, 2017 at 15:56 Discharge Date: February 09, 2017 Admitting Diagnosis symptomatic anemia (1) Symptomatic anemia Diagnosis: Principal Plan: Prior to admit she was having trouble completing her PT due to fatigue, not eating, etc. She was eating better during the day. She apparently did get her 2 units of PRBC (not listed in blood bank). f/u hbg was >10 . She has been ambulatory in the room today. No more stools to be able to test. Will try to get stool guaiac at rehab and recheck CBC/BMP on Monday as already ordered. (2) Hypertension Diagnosis: Secondary Plan: increase lisinopril to 20mg per day (3) Tachycardia Diagnosis: Secondary Plan: likely due to anemia, illness. (4) S/P colon resection Diagnosis: Secondary Plan: Just had surgery 01/2017. Still recovering, just not feeling right and prolonged recovery. Just now starting to be able to eat (notes she did eat some salmon and something else last PM). Seeing Dr. Cartwright. Procedures blood transfusion, 2 units PRBC CBC/BMP: 02/09/17 0825 Significant Findings Laboratory Tests Test 02/08/17 02/08/17 02/09/17 16:53 21:00 08:25 White Blood Count 16.6 TH/MM3 12.9 TH/MM3 (4.0-11.0) (4.0-11.0) Red Blood Count 2.67 MIL/MM3 3.74 MIL/MM3 (4.00-5.30) (4.00-5.30) Hemoglobin 7.9 GM/DL 10.8 GM/DL (11.6-15.3) (11.6-15.3) Hematocrit 24.4 % 33.4 % (35.0-46.0) (35.0-46.0) Platelet Count 787 TH/MM3 659 TH/MM3 (150-450) (150-450) Neutrophils (%) (Auto) 84.0 % 82.1 % (16.0-70.0) (16.0-70.0) Neutrophils # (Auto) 14.0 TH/MM3 10.5 TH/MM3 (1.8-7.7) (1.8-7.7) Neutrophils % (Manual) 90 % (16-70) Lymphocytes % 7 % (9-44) Neutrophils # (Manual) 15.1 TH/MM3 (1.8-7.7) Platelet Estimate HIGH (NORMAL) HIGH (NORMAL) Stomatocytes 1+ (NORMAL) Iron Level 20 MCG/DL (50-170) Total Iron Binding Capacity 204 MCG/DL (250-450) Percent Iron Saturation 9.8 % (20-50) Urine Occult Blood SMALL (NEG) Lymphocytes (%) (Auto) 7.7 % (9.0-44.0) Basophils (%) (Auto) 2.8 % (0.0-2.0) Basophils # (Auto) 0.4 TH/MM3 (0-0.2) Vitamin B12 Level 1246 PG/ML (193-986) PE at Discharge Gen: sitting in chair, slow in movement and speech but with better color to her cheeks, seems a bit more energetic this AM--I again questioned if she got her blood transfusion and she stated yes that was why she was up urinating all night. CV: RRR, still mildly tachy Abd: soft, lifted the abdominal binder and she has a bandage over her incision site, no drainage, no surrounding erythema. mildly tender to the epigastrum but much better than last week Ext: no edema this AM, toes without lesions Hospital Course Pt admitted, transfused 2 units and discharged back to rehab. Was unable to get this scheduled in a timely fashion outpatient. Pt Condition on Discharge: Fair Discharge Disposition: Discharge to SNF Discharge Instructions DIET: Follow Instructions for: As Tolerated, No Restrictions Additional Diet Instructions: soft diet Activities you can perform: Regular-No Restrictions Luisa Najera MD February 09, 2017 16:43
== END 2017-02-09 20:42 ==
LOC: PH3A 15:56
PROVIDERS: ADMIT Family Medicine; ATTEND Family Medicine
DX: D50.9 Iron deficiency anemia, unspecified (principal); K21.9 Gastro-esophageal reflux disease without esophagitis; E03.9 Hypothyroidism, unspecified; I10 Essential (primary) hypertension; J45.909 Unspecified asthma, uncomplicated; E78.5 Hyperlipidemia, unspecified; M54.30 Sciatica, unspecified side; H91.90 Unspecified hearing loss, unspecified ear; Z87.891 Personal history of nicotine dependence; Z88.0 Allergy status to penicillin; Z88.8 Allergy status to other drugs, medicaments and biological substances; Z90.49 Acquired absence of other specified parts of digestive tract
CPT/HCPCS: 36430; 81001; 82607; 83540; 83550; 85007; 85025; 85027; 86850; 86900; 86901; 86920; G0378; J1940; P9016

== ENCOUNTER 2017-04-30 13:18 | Inpatient (IN) | payer MEDICARE ==
[2017-04-30] VITALS (10 sets, daily range): BP systolic 121–177; BP diastolic 66–95; PULSE 78–102; RESP 14–20; TEMP 98.1–98.6; O2SAT 93–100
[~2017-04-30] VITALS: Ht 152.4 cm; Wt 53.5 kg
[~2017-04-30 13:18] MED LIST changes: +CARA1TAB6 PO; +FERR325T PO; +FURO20TA PO; +LISI-515 PO; -LISI10TA3 PO; +METO10TA PO
[2017-04-30] MEDS ORDERED: SODIUM CHLOR 0.9% 1000 ML INJ 1,000 ML IV SCH (13:48)
--- NOTE | 2017-04-30 13:58 | PD ---
HPI Chief Complaint: abdominal pain Time Seen by Provider: 13:40 Travel History International Travel<30 days: No Contact w/Intl Traveler<30days: No History of Present Illness HPI Patient is a 71-year-old female who presents to emergency room with complaints of abdominal pain since yesterday. Patient reports that she has been having episodes of nausea and vomiting 4, reports that she is constipated. Patient reports that she last had diarrhea 2 days ago. Reports that she normally has runny stools every single day. Patient reports that since last night, she's had persistent lower abdominal pain. Reports no fevers or chills, reports concerns as she recently had a bowel resection 2 months (January 18, 2017) ago by Dr. Cartwright. Reports that she had diverticular disease with obstructing diverticulitis with adherent small bowel loop. Patient denies any dysuria, urinary urgency or frequency. Patient with no other complaints. PFSH Past Medical History Arthritis: No Asthma: Yes Cancer: No Cardiovascular Problems: No High Cholesterol: Yes Dementia: Yes Diabetes: No Diminished Hearing: No Endocrine: No GERD: Yes Genitourinary: No Hepatitis: No Hiatal Hernia: No Hypertension: Yes Immune Disorder: No Musculoskeletal: Yes (OA) Neurologic: No Psychiatric: Yes (DEPRESSION) Reproductive: No Respiratory: Yes (ASTHMA) Immunizations Current: No Thyroid Disease: No Menopausal: Yes Dilation and Curettage (D&C): Yes Past Surgical History Abdominal Surgery: Yes (APPY, RAINER) AICD: No Appendectomy: Yes Cardiac Surgery: No Section: Yes Cholecystectomy: Yes Endocrine Surgery: No Eye Surgery: No Genitourinary Surgery: No Gynecologic Surgery: Yes () Joint Replacement: No Oral Surgery: Yes (SINUS SURGERY, T/A) Pacemaker: No Thoracic Surgery: No Tonsillectomy: Yes Social History Alcohol Use: No Tobacco Use: No Substance Use: No Allergies-Medications (Allergen,Severity, Reaction): Coded Allergies: Sulfa (Verified Allergy, Severe, Nausea/Vomiting, 04/30/17) Penicillin (Verified Allergy, Mild, Rash, 04/30/17) Famotidine (Verified Allergy, Unknown, GI UPSET, 04/30/17) Lipitor (Verified Allergy, Unknown, 04/30/17) Reported Meds & Prescriptions Reported Meds & Active Scripts Active Furosemide 20 Mg Tab 20 Mg PO DAILY Carafate (Sucralfate) 1 Gm Tab 1 Gm PO ACHS 0 Days Pantoprazole (Pantoprazole Sodium) 40 Mg Tab 40 Mg PO DAILY Metoclopramide (Metoclopramide HCl) 10 Mg Tab 5 Mg PO ACHS 0 Days Lisinopril 20 Mg Tab 20 Mg PO DAILY 0 Days Ferrous Sulfate 325 Mg Tab 325 Mg PO DAILY Sucralfate Liq (Sucralfate) 1 Gm/10 Ml Shante 1 Gm PO Q8HR Reported Sertraline (Sertraline HCl) 100 Mg Tab 100 Mg PO DAILY Pantoprazole (Pantoprazole Sodium) 40 Mg Tab 40 Mg PO DAILY Review of Systems General / Constitutional: No: Fever Eyes: No: Visual changes HENT: No: Headaches Cardiovascular: No: Chest Pain or Discomfort Respiratory: No: Shortness of Breath Gastrointestinal: Positive: Nausea, Vomiting, Abdominal Pain Genitourinary: No: Dysuria Musculoskeletal: No: Pain Skin: No Rash Neurologic: No: Weakness Psychiatric: No: Depression Endocrine: No: Polydipsia Hematologic/Lymphatic: No: Easy Bruising Physical Exam Narrative GENERAL: Moderate distress SKIN: Focused skin assessment warm/dry. HEAD: Atraumatic. Normocephalic. EYES: Pupils equal and round. No scleral icterus. No injection or drainage. ENT: No nasal bleeding or discharge. Mucous membranes pink and moist. NECK: Trachea midline. No JVD. CARDIOVASCULAR: Regular rate and rhythm. No murmur appreciated. RESPIRATORY: No accessory muscle use. Clear to auscultation. Breath sounds equal bilaterally. GASTROINTESTINAL: Abdomen soft, increased tenderness to lower abdomen with guarding on exam. MUSCULOSKELETAL: No obvious deformities. No clubbing. No cyanosis. No edema. NEUROLOGICAL: Awake and alert. No obvious cranial nerve deficits. Motor grossly within normal limits. Normal speech. PSYCHIATRIC: Appropriate mood and affect; insight and judgment normal. Data Data Last Documented VS Vital Signs Date Time Temp Pulse Resp B/P Pulse Ox O2 Delivery O2 Flow Rate FiO2 04/30/17 14:49 16 04/30/17 13:45 96 Room Air 04/30/17 13:28 98.1 102 138/87 Orders Urinalysis - C+S If Indicated (04/30/17 13:24) Complete Blood Count With Diff (04/30/17 13:48) Comprehensive Metabolic Panel (04/30/17 13:48) Lipase (04/30/17 13:48) Prothrombin Time / Inr (Pt) (04/30/17 13:48) Act Partial Throm Time (Ptt) (04/30/17 13:48) Ct Abd/Pel W Iv Contrast(Rout) (04/30/17 13:48) Iv Access Insert/Monitor (04/30/17 13:48) Ecg Monitoring (04/30/17 13:48) Oximetry (04/30/17 13:48) NPO (04/30/17 13:48) Ondansetron Inj (Zofran Inj) (04/30/17 14:00) Sodium Chlor 0.9% 1000 Ml Inj (Ns 1000 M (04/30/17 13:48) Sodium Chloride 0.9% Flush (Ns Flush) (04/30/17 14:00) Chest, Single Ap (04/30/17 13:48) Morphine Inj (Morphine Inj) (04/30/17 14:00) Oral Contrast - Adult (04/30/17 14:08) Diatrizoate Liq ( Gastroanthony Liq) (04/30/17 14:20) Ondansetron Inj (Zofran Inj) (04/30/17 15:30) Diatrizoate Liq (Md Rene Liq) (04/30/17 15:34) Labs Laboratory Tests Test 04/30/17 14:15 White Blood Count 12.6 TH/MM3 Red Blood Count 4.71 MIL/MM3 Hemoglobin 13.5 GM/DL Hematocrit 41.8 % Mean Corpuscular Volume 88.9 FL Mean Corpuscular Hemoglobin 28.6 PG Mean Corpuscular Hemoglobin 32.2 % Concent Red Cell Distribution Width 17.6 % Platelet Count 366 TH/MM3 Mean Platelet Volume 8.8 FL Neutrophils (%) (Auto) 81.0 % Lymphocytes (%) (Auto) 12.1 % Monocytes (%) (Auto) 4.6 % Eosinophils (%) (Auto) 0.3 % Basophils (%) (Auto) 2.0 % Neutrophils # (Auto) 10.2 TH/MM3 Lymphocytes # (Auto) 1.5 TH/MM3 Monocytes # (Auto) 0.6 TH/MM3 Eosinophils # (Auto) 0.0 TH/MM3 Basophils # (Auto) 0.3 TH/MM3 CBC Comment DIFF FINAL Differential Comment Prothrombin Time 11.4 SEC Prothromb Time International 1.0 RATIO Ratio Activated Partial 26.4 SEC Thromboplast Time Sodium Level 143 MEQ/L Potassium Level 4.2 MEQ/L Chloride Level 105 MEQ/L Carbon Dioxide Level 30.4 MEQ/L Anion Gap 8 MEQ/L Blood Urea Nitrogen 13 MG/DL Creatinine 0.84 MG/DL Estimat Glomerular Filtration 67 ML/MIN Rate Random Glucose 117 MG/DL Calcium Level 9.2 MG/DL Total Bilirubin 0.9 MG/DL Aspartate Amino Transf 28 U/L (AST/SGOT) Alanine Aminotransferase 22 U/L (ALT/SGPT) Alkaline Phosphatase 98 U/L Total Protein 7.5 GM/DL Albumin 3.1 GM/DL Lipase 74 U/L [facility] Medical Decision Making Medical Screen Exam Complete: Yes Emergency Medical Condition: Yes Interpretation(s) Vital Signs Date Time Temp Pulse Resp B/P Pulse Ox O2 Delivery O2 Flow Rate FiO2 04/30/17 13:28 98.1 102 14 138/87 98 Room Air Differential Diagnosis Differential includes small bowel obstruction, colitis, diverticulitis, gastroenteritis, cystitis, appendicitis Narrative Course Patient is a 71-year-old female who presents to emergency room with complaints of lower abdominal pain since last night. She reports that she has been having increased nausea and vomiting with her symptoms. She has felt constipated, has not had a bowel movement in 2 days. Patient is uncomfortable on exam. Plan to have patient drink oral contrast for CT of the abdomen pelvis with oral contrast as there is concern for small bowel obstruction. Lab work ordered. Patient unable to tolerate oral contrast - she is vomiting up her contrast, will remediate with Darlene Jalloh DO Apr 30, 2017 13:58
[2017-04-30] MEDS ORDERED: SODIUM CHLORIDE 0.9% FLUSH 10 ML FLUSH IV FLUSH PRN ×2 (14:00→19:00)
[2017-04-30] MEDS ORDERED: ONDANSETRON HCL 4 MG/2 ML VIAL IVP ONE (14:00)
[2017-04-30] MEDS ORDERED: MORPHINE SULFATE 8 MG/ML INJ IV PUSH ONE (14:00)
[2017-04-30] MEDS ORDERED: DIATRIZOATE MEGLUM/DIATRIZOATE SOD 9 ML CUP ONE ×2 (14:20→15:34)
--- NOTE | 2017-04-30 14:20 | RADRPT ---
EXAM DATE/TIME: 04/30/2017 14:12 [facility] COMPARISON: CHEST SINGLE AP, January 22, 2017, 11:02. INDICATIONS : Free air, low abdomen pain MEDICAL HISTORY : asthma SURGICAL HISTORY : Colon resection. ENCOUNTER: Initial ACUITY: 1 day PAIN SCORE: 0/10 LOCATION: Bilateral chest FINDINGS: The lungs are clear without infiltrate, nodule, or mass. There is no appreciable pleural effusion fo r technique. Heart and mediastinum are unremarkable. Previously seen free intraperitoneal air is no longer seen. CONCLUSION: No acute cardiopulmonary disease. Ousmane Campos MD on April 30, 2017 at 14:17 Board Certified Radiologist. This report was verified electronically.
[2017-04-30 14:36] LABS: AUTOMATED NEUTROPHIL # 10.2 TH/MM3 (1.8-7.7); BASOPHIL # 0.3 TH/MM3 (0-0.2); EOSINOPHIL % 0.3 % (0.0-4.0); HEMATOCRIT 41.8 % (35.0-46.0); HEMO FLAGS DIFF FINAL; LYMPH % 12.1 % (9.0-44.0); LYMPHOCYTE # 1.5 TH/MM3 (1.0-4.8); MEAN CELL VOLUME 88.9 FL (80.0-100.0); MEAN CORPUSCULAR HEMOGLOBIN 28.6 PG (27.0-34.0); MEAN CORPUSCULAR HGB CONC 32.2 % (32.0-36.0); MONO % 4.6 % (0.0-8.0); PLATELET COUNT 366 TH/MM3 (150-450); RED BLOOD COUNT 4.71 MIL/MM3 (4.00-5.30); RED CELL DISTRIBUTION WIDTH 17.6 % (11.6-17.2); WHITE BLOOD COUNT 12.6 TH/MM3 (4.0-11.0)
[2017-04-30 14:45] LABS: CHLORIDE 105 MEQ/L (98-107); POTASSIUM 4.2 MEQ/L (3.5-5.1); SODIUM (NA) 143 MEQ/L (136-145)
[2017-04-30 14:49] LABS: ANION GAP 8 MEQ/L (5-15); BICARBONATE 30.4 MEQ/L (21.0-32.0); BLOOD UREA NITROGEN 13 MG/DL (7-18)
[2017-04-30 14:52] LABS: ALT (GPT) 22 U/L (10-53); AST (GOT) 28 U/L (15-37); GLOMERULAR FILTRATION RATE 67 ML/MIN (>89)
[2017-04-30 14:54] LABS: TOTAL BILIRUBIN ADULT 0.9 MG/DL (0.2-1.0)
[2017-04-30 14:55] LABS: ALKALINE PHOSPHATASE 98 U/L (45-117)
[2017-04-30 15:21] LABS: APTT (PATIENT) 26.4 SEC (24.3-30.1); PROTHROMBIN TIME - PATIENT 11.4 SEC (9.8-11.6)
[2017-04-30] MEDS ORDERED: ONDANSETRON HCL 4 MG/2 ML VIAL IV PUSH ONE (15:30)
[2017-04-30] MEDS ORDERED: ALBU.5I NEB (16:03)
[2017-04-30] MEDS ORDERED: FERR325T8 PO (16:03)
[2017-04-30] MEDS ORDERED: IOHEXOL 350 MG/ML 10 ML VIAL (for RAD DIAG) IV ONE (16:10)
--- NOTE | 2017-04-30 16:34 | RADRPT ---
EXAM DATE/TIME: 04/30/2017 15:57 [facility] COMPARISON: No previous studies available for comparison. INDICATIONS : Lower abdominal pain with nausea and vomiting. IV CONTRAST: 90 cc Omnipaque 350 (iohexol) IV ORAL CONTRAST: Partial prescribed oral contrast ingested. RADIATION DOSE: 6.25 CTDIvol (mGy) MEDICAL HISTORY : Hypertension. Diverticulitis. SURGICAL HISTORY : Appendectomy. Cholecystectomy. section.Colon resection ENCOUNTER: Initial ACUITY: 1 day PAIN SCALE: 6/10 LOCATION: lower quadrant Patient was premedicated for underlying contrast media allergy. TECHNIQUE: Volumetric scanning of the abdomen and pelvis was performed. Using automated exposure control and ad justment of the mA and/or kV according to patient size, radiation dose was kept as low as reasonably achievable to obtain optimal diagnostic quality images. DICOM format image data is available electro nically for review and comparison. FINDINGS: LOWER LUNGS: The visualized lower lungs are clear. LIVER: Homogeneous density without lesion. There is no dilation of the biliary tree. Cholecystectomy clips. SPLEEN: Normal size without lesion. PANCREAS: Within normal limits. KIDNEYS: Normal in size and shape. There is no mass, stone or hydronephrosis. ADRENAL GLANDS: Within normal limits. VASCULAR: There is no aortic aneurysm. BOWEL/MESENTERY: There is an area of soft tissue thickening within the mid abdomen which includes a conglomeration of small bowel loops. There appears to be fluid interspersed in between these bowel loops. This may be l esions and there is dilated small bowel loops proximal to this area. There are postsurgical changes i n the lower abdomen. Diverticulosis of the colon without diverticulitis. There is no free intraperito dayan air or fluid.ABDOMINAL WALL: Within normal limits. RETROPERITONEUM: There is no lymphadenopathy. BLADDER: No wall thickening or mass. REPRODUCTIVE: Within normal limits. INGUINAL: There is no lymphadenopathy or hernia. MUSCULOSKELETAL: Within normal limits for patient age. CONCLUSION: 1. Soft tissue thickening within a conglomeration of small bowel loops with stranding and prominent f luid, possibly representing adhesions. There are some dilated small bowel loops in the left abdomen a nd this may be point of obstruction. 2. Status post cholecystectomy. 3. Diverticulosis without diverticulitis. Rick Aleman MD on April 30, 2017 at 16:28 Board Certified Radiologist. This report was verified electronically.
[2017-04-30 17:29] LABS: BLOOD, URINE NEG (NEG); GLUCOSE,URINE NEG (NEG); KETONE, URINE NEG (NEG); NITRITE,URINE NEG (NEG); PH, URINE 5.5 (5.0-8.5)
[2017-04-30 17:30] LABS: METHOD OF COLLECTION CLEAN CATCH; URINE COLOR YELLOW (YELLW/STRAW)
[2017-04-30 17:32] LABS: COMMENT (UR) CULT NOT INDICATED; COMMENT2 (UR) MUCOUS PRESENT; CULTURE IF INDICATED CULT NOT INDICATED; WBC, URINE 0-2 /hpf (0-5)
--- NOTE | 2017-04-30 18:00 | PD ---
Physical Exam Narrative Patient was seen by ED physician and signed out to me. Data Data Last Documented VS Vital Signs Date Time Temp Pulse Resp B/P Pulse Ox O2 Delivery O2 Flow Rate FiO2 04/30/17 18:01 88 16 169/89 97 Room Air 04/30/17 13:28 98.1 Orders Urinalysis - C+S If Indicated (04/30/17 13:24) Complete Blood Count With Diff (04/30/17 13:48) Comprehensive Metabolic Panel (04/30/17 13:48) Lipase (04/30/17 13:48) Prothrombin Time / Inr (Pt) (04/30/17 13:48) Act Partial Throm Time (Ptt) (04/30/17 13:48) Ct Abd/Pel W Iv Contrast(Rout) (04/30/17 13:48) Iv Access Insert/Monitor (04/30/17 13:48) Ecg Monitoring (04/30/17 13:48) Oximetry (04/30/17 13:48) NPO (04/30/17 13:48) Ondansetron Inj (Zofran Inj) (04/30/17 14:00) Sodium Chlor 0.9% 1000 Ml Inj (Ns 1000 M (04/30/17 13:48) Sodium Chloride 0.9% Flush (Ns Flush) (04/30/17 14:00) Chest, Single Ap (04/30/17 13:48) Morphine Inj (Morphine Inj) (04/30/17 14:00) Oral Contrast - Adult (04/30/17 14:08) Diatrizoate Liq ( Gastroanthony Liq) (04/30/17 14:20) Ondansetron Inj (Zofran Inj) (04/30/17 15:30) Diatrizoate Liq ( Gastroanthony Liq) (04/30/17 15:34) Iohexol 350 Inj (Omnipaque 350 Inj) (04/30/17 16:10) Labs Laboratory Tests Test 04/30/17 04/30/17 14:15 17:00 White Blood Count 12.6 TH/MM3 Red Blood Count 4.71 MIL/MM3 Hemoglobin 13.5 GM/DL Hematocrit 41.8 % Mean Corpuscular Volume 88.9 FL Mean Corpuscular Hemoglobin 28.6 PG Mean Corpuscular Hemoglobin 32.2 % Concent Red Cell Distribution Width 17.6 % Platelet Count 366 TH/MM3 Mean Platelet Volume 8.8 FL Neutrophils (%) (Auto) 81.0 % Lymphocytes (%) (Auto) 12.1 % Monocytes (%) (Auto) 4.6 % Eosinophils (%) (Auto) 0.3 % Basophils (%) (Auto) 2.0 % Neutrophils # (Auto) 10.2 TH/MM3 Lymphocytes # (Auto) 1.5 TH/MM3 Monocytes # (Auto) 0.6 TH/MM3 Eosinophils # (Auto) 0.0 TH/MM3 Basophils # (Auto) 0.3 TH/MM3 CBC Comment DIFF FINAL Differential Comment Prothrombin Time 11.4 SEC Prothromb Time International 1.0 RATIO Ratio Activated Partial 26.4 SEC Thromboplast Time Sodium Level 143 MEQ/L Potassium Level 4.2 MEQ/L Chloride Level 105 MEQ/L Carbon Dioxide Level 30.4 MEQ/L Anion Gap 8 MEQ/L Blood Urea Nitrogen 13 MG/DL Creatinine 0.84 MG/DL Estimat Glomerular Filtration 67 ML/MIN Rate Random Glucose 117 MG/DL Calcium Level 9.2 MG/DL Total Bilirubin 0.9 MG/DL Aspartate Amino Transf 28 U/L (AST/SGOT) Alanine Aminotransferase 22 U/L (ALT/SGPT) Alkaline Phosphatase 98 U/L Total Protein 7.5 GM/DL Albumin 3.1 GM/DL Lipase 74 U/L Urine Collection Type CLEAN CATCH Urine Color YELLOW Urine Turbidity CLEAR Urine pH 5.5 Urine Specific [place] GREATER THAN 1.035 Urine Protein NEG mg/dL Urine Glucose (UA) NEG mg/dL Urine Ketones NEG mg/dL Urine Occult Blood NEG Urine Nitrite NEG Urine Bilirubin NEG Urine Leukocyte Esterase NEG Urine WBC 0-2 /hpf Urine Squamous Epithelial 6-8 /hpf Cells Urine Amorphous Sediment FEW Microscopic Urinalysis Comment CULT NOT INDICATED Urine Collection Time 1700 [facility] Supervised Visit with FIONA: No Interpretation(s) Last Impressions Chest X-Ray 04/30/[id number] Signed Impressions: Service Date/Time: Sunday, April 30, 2017 14:12 - CONCLUSION: No acute cardiopulmonary disease. Ousmane Campos MD Abdomen/Pelvis CT [id number]/30/[id number] Signed Impressions: Service Date/Time: Sunday, April 30, 2017 15:57 - CONCLUSION: 1. Soft tissue thickening within a conglomeration of small bowel loops with stranding and prominent fluid, possibly representing adhesions. There are some dilated small bowel loops in the left abdomen and this may be point of obstruction. 2. Status post cholecystectomy. 3. Diverticulosis without diverticulitis. Rick Aleman MD 1759 PM. CBC with WBC 12.6. 81 neutrophil. CMP within normal limit. UA is negative. Narrative Course I spoke with Dr. Addison, lead electrical controls engineer for Dr. Cartwright. Advised medical admission, NG tube and bowel rest and Dr. Cartwright will see patient in a.m. Patient refuses NG tube. Diagnosis Primary Impression: Small bowel obstruction Admitting Information Admitting Physician Requests: Admit Carl Gonzalez MD Apr 30, 2017 18:00
[2017-04-30] MEDS ORDERED: NALOXONE HCL 0.4 MG/ML AMP IV PRN ×2 (19:00→19:15)
[2017-04-30] MEDS ORDERED: ONDANSETRON HCL 4 MG/2 ML VIAL IVP PRN (19:00)
[2017-04-30] MEDS ORDERED: MORPHINE SULFATE 4 MG/ML INJ IV PRN (19:15)
[2017-04-30] MEDS: MORPHINE SULFATE 4 MG/ML INJ IV PRN (19:39)
[2017-04-30] MEDS: SODIUM CHLOR 0.9% 1000 ML INJ 1,000 ML IV SCH (19:39)
[2017-04-30] MEDS: SODIUM CHLORIDE 0.9% FLUSH 10 ML FLUSH IV FLUSH SCH (21:00)
[2017-05-01] VITALS: BP 169/88; PULSE 95; RESP 20; TEMP 99.6; O2SAT 97
[2017-05-01] MEDS: SODIUM CHLOR 0.9% 1000 ML INJ 1,000 ML IV SCH (01:42)
[2017-05-01] MEDS: MORPHINE SULFATE 4 MG/ML INJ IV PRN ×3 (01:45→23:01)
[2017-05-01 06:58] LABS: AUTOMATED NEUTROPHIL # 12.8 TH/MM3 (1.8-7.7); BASOPHIL # 0.1 TH/MM3 (0-0.2); BASOPHIL % 0.6 % (0.0-2.0); EOSINOPHIL # 0.3 TH/MM3 (0-0.4); EOSINOPHIL % 1.7 % (0.0-4.0); HEMATOCRIT 35.9 % (35.0-46.0); LYMPH % 9.8 % (9.0-44.0); LYMPHOCYTE # 1.5 TH/MM3 (1.0-4.8); MEAN CELL VOLUME 90.4 FL (80.0-100.0); MEAN CORPUSCULAR HEMOGLOBIN 29.8 PG (27.0-34.0); MONO % 4.8 % (0.0-8.0); NEUT % 83.1 % (16.0-70.0); PLATELET COUNT 307 TH/MM3 (150-450); RED BLOOD COUNT 3.97 MIL/MM3 (4.00-5.30); RED CELL DISTRIBUTION WIDTH 18.2 % (11.6-17.2); WHITE BLOOD COUNT 15.4 TH/MM3 (4.0-11.0)
[2017-05-01 07:00] LABS: HEMO FLAGS DIFF FINAL
[2017-05-01 07:32] LABS: ALKALINE PHOSPHATASE 107 U/L (45-117); ALT (GPT) 23 U/L (10-53); ANION GAP 7 MEQ/L (5-15); AST (GOT) 29 U/L (15-37); BICARBONATE 32.4 MEQ/L (21.0-32.0); BLOOD UREA NITROGEN 12 MG/DL (7-18); CHLORIDE 105 MEQ/L (98-107); GLOMERULAR FILTRATION RATE 72 ML/MIN (>89); POTASSIUM 3.2 MEQ/L (3.5-5.1); SODIUM (NA) 144 MEQ/L (136-145); TOTAL BILIRUBIN ADULT 1.1 MG/DL (0.2-1.0)
[2017-05-01 08:00] VITALS: BP 122/71; PULSE 97; RESP 18; TEMP 98; O2SAT 92
[2017-05-01] MEDS ORDERED: POTASSIUM CHLORIDE 20 MEQ CONTROLLED RELEASE TAB PO ONE (08:00)
[2017-05-01] MEDS ORDERED: RESP: ALBUTEROL CONC 2.5 MG/0.5 ML NEB NEB PRN (08:00)
[2017-05-01] MEDS: LISINOPRIL 20 MG TAB PO SCH (08:53)
[2017-05-01] MEDS: NS + KCL 40 MEQ INJ 1,000 ML IV SCH ×3 (08:56→21:05)
[2017-05-01] MEDS: SODIUM CHLORIDE 0.9% FLUSH 10 ML FLUSH IV FLUSH SCH ×2 (09:00→21:00)
[2017-05-01] MEDS: PANTOPRAZOLE SODIUM 40 MG VIAL IV PUSH SCH (09:04)
[2017-05-01] MEDS: SERTRALINE HCL 100 MG TAB PO SCH (09:32)
--- NOTE | 2017-05-01 09:54 | MH ---
cc: JULIO C DIAZ DATE OF ADMISSION: 04/30/2017 CHIEF COMPLAINT Abdominal pain, nausea, vomiting. ADMISSION DIAGNOSIS Small bowel obstruction. HISTORY OF PRESENT ILLNESS Ms. Sims is a 71-year-old white female well-known to me from the office who had a sigmoid obstruction back a few months ago from diverticulitis flare and had surgery with Dr. Cartwright at that point. She has had a prolonged recuperation time with continued abdominal discomfort, night sweats and fatigue. She had really been doing fairly well over the past month with a gradual improvement in her symptoms, more regular bowel movements, no nausea or vomiting, no fevers until Monday evening when she developed significant abdominal pain and vomiting. She notes it was about 8 hours after having had a spaghetti dinner when she started vomiting and she vomited up spaghetti-laden emesis. She continued to vomit and have severe abdominal pain which she states was worse than after her original bowel surgery. She also notes that over the past month and a half that she has had back discomfort that is more in the lower thoracic and upper lumbar area that does not radiate down into the legs, is a constant ache and is different than her normal previous back discomfort. She has been feeling significantly better since having had some morphine an NG tube placed in the emergency room yesterday about 2 o'clock p.m. PAST MEDICAL HISTORY Significant for - 1. Asthma. 2. Menopausal. 3. Vitamin B12 deficiency. 4. Hyperlipidemia. 5. Hypertension. 6. Varicose veins. 7. Gastroesophageal reflux disease. 8. Diverticulitis with stricture. 9. Exostosis of the right upper extremity. PAST SURGICAL HISTORY 1. Tonsillectomy and adenoidectomy. 2. Cholecystectomy. 3. Appendectomy. 4. [facility] foot surgery for the right foot bunions and hammertoe. 5. . 6. Partial colectomy 2 months ago secondary to diverticular flare and obstruction. SOCIAL HISTORY She is single. She did work with a [employer] business but is not currently working since her surgery. She has wine occasionally but minimal since her surgery. She had a 1/4-pack per day history of tobacco use for about 10 years. She quit many years ago and has not had anything recently. Occasional marijuana use. No other drug use. MEDICATIONS 1. Lisinopril 20 mg daily. 2. Zoloft 100 mg daily. 3. Protonix daily. 4. Iron sulfate 1 tablet daily. ALLERGIES BEXTRA caused bloating. CRESTOR. LIPITOR. LOVASTATIN. PRAVASTATIN. All had abdominal cramping or muscle pain. FAMOTIDINE - Stomach upset. PENICILLIN - Rash. FAMILY HISTORY Daughter has exostosis. Dad at 71 with an NH, history of bypass surgery. Mom 85 with Alzheimer's. She has a son with bipolar disorder, exostosis and a third son who is healthy. VACCINATIONS Pneumovax 23 in 2011. Prevnar in 2016. Flu vaccines yearly. OTHER PHYSICIANS She has seen Dr. Ibanez for GI. Dr. Cartwright for colorectal. REVIEW OF SYSTEMS She denies any chest discomfort or shortness of breath. She has noted a little sinus discomfort over the past week. No fevers, sweats or chills, sore throat now with an NG tube in place. Nausea and vomiting that started Monday evening and abdominal pain that she described as severe that is now minimal at this time. She has not had a bowel movements for the past few days. Prior to that she would have a normal stool first thing in the morning followed by four or five more bowel movements that would end up with a liquid stool towards the end. She notes they are dark since she has been taking iron. She has had no leg pains or arm pains. She had been having night sweats that were pretty profound that have improved over the past month and now just seem to be somewhat of a sweat to her lower abdomen and legs during the evening. She has had no rash, no swelling. She has noted a headache over the past week but it is gone since she had received morphine in the emergency room. Remainder of review of the systems is negative other than as discussed. OBJECTIVE VITAL SIGNS: She has been afebrile since her admission. Heart rate was 102 on admission, blood pressure 138/87, O2 sat 98% on room air that has remained stable throughout. Her blood pressures have elevated into the lungs 170s/80s, back to 122/71 this morning. She has had IV fluids in with normal saline. She has 500 mL of bilious fluid in her NG suction. She did have almost a liter of emesis prior to having the NG tube placed. She has voided but has not had any bowel movement since admission. IN GENERAL: She is a well-developed white female in no acute distress. NG tube is in place. HEENT: Pupils are equal and reactive. Nose - No discharge. Oropharynx is somewhat dry. No erythema or exudate. NG tube is visible. NECK: Supple without lymphadenopathy. No supraclavicular or adenopathy. CARDIOVASCULAR: Regular rate and rhythm without murmurs, rubs or gallops. LUNGS: Diminished air sounds to the lower Lungs: No wheezes, no rhonchi. No egophony. ABDOMEN: With the NG tube suction on hold, shows slight bowel sounds, somewhat diminished. Her abdomen is mildly distended. She is tender mostly to the right side at the lower abdomen. She has a firm, distended area noted to the right of the umbilicus that is the area of post sensitivity. She is tender with percussion. No rebound. EXTREMITIES: No edema. 2+ pulses. No skin lesions to the feet or legs or arms. She has shortened right upper limb exostoses as noted from her defect. LABORATORY DATA White count 12.6 yesterday, 15.4 today, hemoglobin 13.5 down to 11.8 after IV fluids, neutrophils slightly elevated at 83%. INR was 1. Comprehensive metabolic panel was within normal limits on admission. This morning her potassium is down to 3.2. Urinalysis was negative other than a slightly high specific gravity of 1.035, consistent with her dehydration. IMAGING STUDIES Abdomen and pelvis CT showed soft tissue thickening within the mid-abdomen, continued small bowel loops, fluid first between the small bowel loops, postsurgical changes in the lower abdomen. No free intraperitoneal air or fluid. Chest x-ray was negative. ASSESSMENT AND PLAN 1. Small bowel obstruction. She is currently n.p.o. She is doing much better since having the NG tube in place. We will try to clamp that a little bit later in the day and have her see if she can tolerate some sips of fluids. She does have some scant bowel sounds on exam. The patient has had recent colon surgery and adhesions could be playing a part in her small bowel obstruction. She was supposed to have a further colonoscopy done in the near future but had not made it back for that appointment; that was scheduled this Monday with Dr. Cartwright. He has been consulted from the emergency department. 2. Hypertension. She has been without her blood pressure medication since Monday due to vomiting. We will restart those today with the NG tube clamped and see how she does. 3. Asthma. She has not been using any regular medications for this and it has been controlled. We will continue to monitor and add nebulizers or inhalers if needed. 4. Chronic depression. We will continue her on the Zoloft. MD ALICIA Guzman/ROCKY /8:53 AM /9:23 AM
[2017-05-01 12:00] VITALS: BP 118/76; PULSE 91; RESP 17; TEMP 97.9; O2SAT 93
[2017-05-01] MEDS ORDERED: POTASSIUM CHLORIDE 25 MEQ EFFERVESCENT TAB PO ONE (12:00)
[2017-05-01 16:00] VITALS: BP 145/76; PULSE 98; RESP 17; TEMP 100.6; O2SAT 94
[2017-05-01 20:00] VITALS: BP 155/80; PULSE 98; RESP 18; TEMP 99.2; O2SAT 95
[2017-05-01] MEDS ORDERED: PROCHLORPERAZINE INJ 10 MG/2 ML VIAL IM PRN (20:00)
[2017-05-01] MEDS ORDERED: ACETAMINOPHEN 500 MG CPLT PO PRN (20:00)
[2017-05-01] MEDS ORDERED: LEVOFLOXACIN 500 MG PREMIX INJ 100 ML IV SCH (21:00)
[2017-05-02] VITALS: BP 141/83; PULSE 95; RESP 16; TEMP 99.1; O2SAT 96
[2017-05-02] MEDS: NS + KCL 40 MEQ INJ 1,000 ML IV SCH ×4 (04:43→22:15)
--- NOTE | 2017-05-02 07:47 | HHI.FPPN ---
Subjective Remarks tolerated NG tube clamped since yesterday late AM. Tolerated clear liquids yesterday PM without vomiting. Declined IVF and any meds through IV stating that it is burning. Noted left arm numbness with placement of the IV yesterday that lasted for some time (couldn't define), now numbness has resolved. She feels something happened with the IV contrast for the CT scan as she had burning and arm pain with that. Low grade fever last PM. She declined the antibiotics as she didn't want anything IV, wasn't given IM as I had indicated could be done. No BM, has been urinating well. HAs 700ml of gastric secretions in the tank from yesterday (not currently attached). Abdominal pain is less. Not sure if passing gas. Objective Vitals Vital Signs Date Time Temp Pulse Resp B/P Pulse Ox O2 Delivery O2 Flow Rate FiO2 05/02/17 00:00 99.1 95 16 141/83 96 05/01/17 20:00 99.2 98 18 155/80 95 05/01/17 16:00 100.6 98 17 145/76 94 05/01/17 12:00 97.9 91 17 118/76 93 05/01/17 08:00 98.0 97 18 122/71 92 I/O 05/01/17 05/01/17 05/01/17 05/02/17 05/02/17 05/02/17 07:00 15:00 23:00 07:00 15:00 23:00 Intake Total 0 ml 0 ml 240 ml Output Total 475 ml 100 ml Balance -475 ml -100 ml 0 ml 240 ml Intake Oral 0 ml 240 ml IV Total 0 ml Output Urine Total 100 ml Gastric Drainage Total 475 ml # Voids 1 3 3 # Bowel Movements 0 1 Result Diagram: 05/01/1760605/01/17 0607 Objective Remarks Gen: calm, supine in bed, no distress, NGT clamped HEENT: left nare NGT, notes she can't breathe through that nare, no discharge or bleeding CV: rrr, no murmur Lungs: CTA bilaterally ABd: less distended, less firm area than yesterday, better BS, slightly tender to the right and lower abdomen Ext: no edema, no calf pain Urinary Catheter: No Vascular Central Line Catheter: No A/P Problem List: (1) Small bowel obstruction Status: Acute Plan: Check xray of abdomen today. If improvement, stop NGT and advance diet. Add dulcolax suppository to stimulate BM. increase activity. She declines anything through the IV. Since tolerating po will stop the order for PICC line. (2) Hypertension Status: Chronic Plan: fair control. continue lisinopril (3) Hypokalemia Status: Acute Plan: unable to get labs this AM, retry later (4) Depression Status: Acute Plan: continue home meds, fair control. Problem Qualifiers (1) Hypertension: Qualified Code: I10 - Essential hypertension (2) Depression: Qualified Code: F33.41 - Recurrent major depressive disorder, in partial remission Luisa Najera MD May 02, 2017 07:47
--- NOTE | 2017-05-02 07:54 | HHI.PR ---
Addendum to Inpatient Note Addendum Reason: Additional Documentation Additional Information Pt with fever last PM, elevated WBC. Will start on levaquin. Pt declined IV last PM, will start on oral levaquin. Luisa Hoang MD May 02, 2017 07:53
[2017-05-02 07:59] VITALS: BP 144/83; PULSE 96; RESP 20; TEMP 98.7; O2SAT 94
[2017-05-02] MEDS ORDERED: BISACODYL 10 MG SUPP RECTAL ONE (08:00)
[2017-05-02] MEDS: LISINOPRIL 20 MG TAB PO SCH (08:43)
[2017-05-02] MEDS: SERTRALINE HCL 100 MG TAB PO SCH (08:43)
[2017-05-02] MEDS: PANTOPRAZOLE SODIUM 40 MG VIAL IV PUSH SCH (08:48)
[2017-05-02] MEDS: SODIUM CHLORIDE 0.9% FLUSH 10 ML FLUSH IV FLUSH SCH ×2 (08:54→20:08)
--- NOTE | 2017-05-02 10:07 | RADRPT ---
EXAM DATE/TIME: 05/02/2017 08:24 [facility] COMPARISON: CT ABDOMEN & PELVIS W CONTRAST, April 30, 2017, 15:57. INDICATIONS : Abdominal pain. Evaluate for small bowel obstruction. MEDICAL HISTORY : Hypertension. Diverticulitis. SURGICAL HISTORY : Appendectomy. Cholecystectomy. section. Colon resection ENCOUNTER: Initial ACUITY: 3 days PAIN SCORE: 4/10 LOCATION: Abdomen, upper quadrant. FINDINGS: There has been slight interval improvement of the small bowel obstruction compared to the previous ex amination. Minimal residual air-filled dilatation of loops within the left abdomen is noted. A naso gastric tube has its tip in the distal stomach or proximal duodenum. The patient is status post chol ecystectomy. Degenerative changes and scoliosis of the thoracolumbar spine are noted. No free intra peritoneal air is noted. CONCLUSION: 1. There has been slight improvement of air-filled dilatation of several loops of small bowel in the left abdomen with some residual dilatation still noted. 2. Degenerative changes and scoliosis of the thoracolumbar spine. 3. No evidence of free intraperitoneal air. Bon Bautista MD on May 02, 2017 at 9:29 Board Certified Radiologist. This report was verified electronically.
[2017-05-02] MEDS: LEVOFLOXACIN 500 MG TAB PO SCH (10:16)
[2017-05-02 10:24] LABS: AUTOMATED NEUTROPHIL # 13.4 TH/MM3 (1.8-7.7); BASOPHIL # 0.2 TH/MM3 (0-0.2); BASOPHIL % 1.3 % (0.0-2.0); EOSINOPHIL # 0.1 TH/MM3 (0-0.4); EOSINOPHIL % 0.9 % (0.0-4.0); LYMPHOCYTE # 1.6 TH/MM3 (1.0-4.8); MEAN CELL VOLUME 89.2 FL (80.0-100.0); MEAN CORPUSCULAR HEMOGLOBIN 29.6 PG (27.0-34.0); MEAN CORPUSCULAR HGB CONC 33.2 % (32.0-36.0); NEUT % 82.8 % (16.0-70.0); PLATELET COUNT 372 TH/MM3 (150-450); RED BLOOD COUNT 4.26 MIL/MM3 (4.00-5.30); RED CELL DISTRIBUTION WIDTH 16.8 % (11.6-17.2); WHITE BLOOD COUNT 16.1 TH/MM3 (4.0-11.0)
[2017-05-02 10:27] LABS: HEMO FLAGS DIFF FINAL
[2017-05-02 10:29] LABS: POTASSIUM 3.5 MEQ/L (3.5-5.1)
[2017-05-02 10:38] LABS: BICARBONATE 31.1 MEQ/L (21.0-32.0)
[2017-05-02 12:00] VITALS: BP 114/71; PULSE 94; RESP 20; TEMP 97.6; O2SAT 95
[2017-05-02 16:00] VITALS: BP 141/74; PULSE 90; RESP 20; TEMP 97.6; O2SAT 95
--- NOTE | 2017-05-02 19:51 | HHI.PR ---
Subjective Remarks C/R Surg afebrile, VSS neida PO +BM Objective - Vital Signs Date Time Temp Pulse Resp B/P Pulse Ox O2 Delivery O2 Flow Rate FiO2 05/02/17 16:00 97.6 90 20 141/74 95 04/30/17 21:20 Room Air Result Diagram: 05/02/17 0950 05/02/17 0950 Objective Remarks PE alert Abd - soft, min tympany, non-tender A/P Assessment and Plan Imp: adv diet dc NGT OOB decr IVF Travis Cartwright MD May 02, 2017 19:51
[2017-05-02 20:00] VITALS: BP 145/79; PULSE 95; RESP 16; TEMP 99.1; O2SAT 96
[2017-05-03] VITALS: BP 132/79; PULSE 97; RESP 16; TEMP 98.5; O2SAT 96
--- NOTE | 2017-05-03 06:55 | MR ---
cc: MK BUTLER MD DATE 04/30/2017 HISTORY OF PRESENT ILLNESS This 71-year-old is three months status post low anterior section with a small bowel resection for diverticulitis. The patient presented to the emergency room with a 24-hour history of vomiting and abdominal pain with no passage of stool. The patient is passing gas. She states the pain is steady in nature. PAST MEDICAL HISTORY Includes hypertension. PHYSICAL EXAM She is afebrile with normal vital signs. She is alert without distress. SKIN: Warm and dry. LUNGS: Respirations are normal. ABDOMEN: Soft, but she is does have moderate tenderness diffusely. RECTAL: A rectal exam was not performed. LABORATORY DATA Laboratories show acceptable CBC and electrolytes. IMAGING CT scanning shows a small bowel obstruction with a confluence of distal small bowel that appears consistent with an obstructing point. There was some fluid associated with this confluence, but there is no air or rim enhancement associated with the fluid. ASSESSMENT Small bowel obstruction. PLAN Recommend NG suction, IV fluids and serial x-rays. MD SONIDO Poe/MARGARITA /7:31 PM /6:50 AM
--- NOTE | 2017-05-03 07:12 | HHI.PR ---
Subjective Remarks C/R Surg afebrile, VSS neida PO +BM Objective - Vital Signs Date Time Temp Pulse Resp B/P Pulse Ox O2 Delivery O2 Flow Rate FiO2 05/03/17 00:00 98.5 97 16 132/79 96 04/30/17 21:20 Room Air Result Diagram: 05/02/17 0950 05/02/17 0950 Objective Remarks PE alert Abd - soft, min tympany, non-tender A/P Assessment and Plan Imp: adv diet - soft OOB decr IVF dc plans Travis Cartwright MD May 03, 2017 07:12
[2017-05-03 08:00] VITALS: BP 130/69; PULSE 87; RESP 20; TEMP 99.9; O2SAT 94
--- NOTE | 2017-05-03 08:00 | HHI.FPPN ---
Subjective Remarks Feels better today. No nausea, vomiting, minimal stool, positive flatus. no abdominal pain. No fever. NGT is out and thankful for that. has been ambulatory. Objective Vitals Vital Signs Date Time Temp Pulse Resp B/P Pulse Ox O2 Delivery O2 Flow Rate FiO2 05/03/17 00:00 98.5 97 16 132/79 96 05/02/17 22:27 18 05/02/17 20:00 99.1 95 16 145/79 96 05/02/17 16:00 97.6 90 20 141/74 95 05/02/17 12:00 97.6 94 20 114/71 95 05/02/17 07:59 98.7 96 20 144/83 94 I/O 05/02/17 05/02/17 05/02/17 05/03/17 05/03/17 05/03/17 07:00 15:00 23:00 07:00 15:00 23:00 Intake Total 240 ml 450 ml 1000 ml Balance 240 ml 450 ml 1000 ml Intake Oral 240 ml 450 ml 1000 ml # Voids 3 3 5 # Bowel Movements 1 2 1 Result Diagram: 05/02/17 0950 05/02/17 0950 Objective Remarks Gen: calm, supine in bed, no distress, HEENT: no discharge or bleeding CV: rrr, no murmur Lungs: CTA bilaterally ABd: less distended, better BS today, no mass palpable, firm area gone. much less tender Ext: no edema, no calf pain Urinary Catheter: No Vascular Central Line Catheter: No A/P Problem List: (1) Small bowel obstruction Status: Acute Plan: Check xray of abdomen today and advance diet. If doing well, possible discharge to home later today or tomorrow. She has f/u with colorectal on Monday as outpatient already scheduled. On levaquin for fever the other day. WBC slightly high yeseterday, pending repeat today. (2) Hypertension Status: Chronic Plan: fair control. continue lisinopril (3) Hypokalemia Status: Acute Plan: potassium returned to normal yesterday (4) Depression Status: Acute Plan: continue home meds, fair control. Problem Qualifiers (1) Hypertension: Qualified Code: I10 - Essential hypertension (2) Depression: Qualified Code: F33.41 - Recurrent major depressive disorder, in partial remission Luisa Najera MD May 03, 2017 08:00
[2017-05-03 08:25] LABS: AUTOMATED NEUTROPHIL # 7.5 TH/MM3 (1.8-7.7); BASOPHIL # 0.1 TH/MM3 (0-0.2); EOSINOPHIL # 0.2 TH/MM3 (0-0.4); EOSINOPHIL % 1.7 % (0.0-4.0); HEMATOCRIT 35.8 % (35.0-46.0); LYMPH % 11.1 % (9.0-44.0); LYMPHOCYTE # 1.1 TH/MM3 (1.0-4.8); MEAN CELL VOLUME 90.4 FL (80.0-100.0); MEAN CORPUSCULAR HEMOGLOBIN 29.2 PG (27.0-34.0); MEAN CORPUSCULAR HGB CONC 32.3 % (32.0-36.0); MONO % 7.3 % (0.0-8.0); NEUT % 78.9 % (16.0-70.0); PLATELET COUNT 308 TH/MM3 (150-450); RED BLOOD COUNT 3.97 MIL/MM3 (4.00-5.30); RED CELL DISTRIBUTION WIDTH 17.2 % (11.6-17.2); WHITE BLOOD COUNT 9.6 TH/MM3 (4.0-11.0)
[2017-05-03 08:33] LABS: HEMO FLAGS DIFF FINAL
[2017-05-03] MEDS: SODIUM CHLORIDE 0.9% FLUSH 10 ML FLUSH IV FLUSH SCH (09:03)
[2017-05-03] MEDS: PANTOPRAZOLE SODIUM 40 MG VIAL IV PUSH SCH (09:04)
[2017-05-03] MEDS: LISINOPRIL 20 MG TAB PO SCH (09:04)
[2017-05-03] MEDS: SERTRALINE HCL 100 MG TAB PO SCH (09:04)
[2017-05-03] MEDS: LEVOFLOXACIN 500 MG TAB PO SCH (09:04)
[2017-05-03 12:00] VITALS: BP 130/75; PULSE 93; RESP 20; TEMP 98.7; O2SAT 97
--- NOTE | 2017-05-03 13:52 | RADRPT ---
EXAM DATE/TIME: 05/03/2017 12:34 [facility] COMPARISON: ABDOMEN FLAT & UPRIGHT, May 02, 2017, 8:24. INDICATIONS : Abdominal pain. Evaluate for small bowel obstruction MEDICAL HISTORY : Hypertension. Diverticulitis. SURGICAL HISTORY : Appendectomy. Cholecystectomy. Colon resection. ENCOUNTER: Subsequent ACUITY: 4 - 6 days PAIN SCORE: 3/10 LOCATION: Upper quadrant Abdomen FINDINGS: The nasogastric tube has been removed. There has been minimal increased air filled dilatation of sev eral loops of small bowel suggesting ileus or recurrent partial small bowel obstruction. Clinical co rrelation is recommended. Degenerative changes and scoliosis of the thoracolumbar spine are noted. The patient is status-post cholecystectomy. CONCLUSION: 1. Minimal increased air filled dilatation of several loops of small bowel status post removal of erik ogastric tube raising the possibility of ileus or recurrent partial small bowel obstruction. Clinica l correlation is recommended. 2. Degenerative changes and scoliosis of the thoracolumbar spine. Bon Bautista MD on May 03, 2017 at 13:25 Board Certified Radiologist. This report was verified electronically.
[2017-05-03] MEDS ORDERED: ZOLO100T PO (15:11)
[2017-05-03] MEDS ORDERED: LEVA500T20 PO (15:11)
--- NOTE | 2017-05-03 15:17 | HHI.DS ---
Discharge Summary Admission Date Apr 30, 2017 at 18:37 Discharge Date: May 03, 2017 Admitting Diagnosis small bowel obstruction (1) Small bowel obstruction Diagnosis: Principal Plan: Pt states she is tolerating bagel, yogert, fluids today without problem, She is passing a lot of gas and no nausea with eating. She would like to go home. We discussed that her xray showed increased air levels and need to be cautious with food intake. Will discharge to home with colorectal f/u on Monday however if she is having recurrant abdominal pain she needs to immediately back off to fluids for her diet. Encouraged ambulation. WBC was elevated on admission and she had 1 night of fever. Started on levaquin. Will continue for another 5 days. (2) Hypertension Diagnosis: Secondary Plan: fair control. continue lisinopril (3) Hypokalemia Diagnosis: Secondary Plan: potassium returned to normal yesterday (4) Depression Diagnosis: Secondary Plan: continue home meds, fair control. Consultants colorectal Procedures none Brief History 71 yo WF with recent partial colon resection for obstruction from diverticulitis with a prolonged recovery who started with intractable vomiting the day prior to admission. CBC/BMP: 05/03/17 0820 05/02/17 0950 Significant Findings Laboratory Tests Test 04/30/17 05/01/17 05/02/17 05/03/17 17:00 06:07 09:50 08:20 Urine Specific [place] GREATER THAN 1.035 (1.002-1.035) Urine Squamous Epithelial 6-8 /hpf (0-5) Cells White Blood Count 15.4 TH/MM3 16.1 TH/MM3 (4.0-11.0) (4.0-11.0) Red Blood Count 3.97 MIL/MM3 3.97 MIL/MM3 (4.00-5.30) (4.00-5.30) Red Cell Distribution Width 18.2 % (11.6-17.2) Neutrophils (%) (Auto) 83.1 % 82.8 % 78.9 % (16.0-70.0) (16.0-70.0) (16.0-70.0) Neutrophils # (Auto) 12.8 TH/MM3 13.4 TH/MM3 (1.8-7.7) (1.8-7.7) Potassium Level 3.2 MEQ/L (3.5-5.1) Carbon Dioxide Level 32.4 MEQ/L (21.0-32.0) Estimat Glomerular Filtration 72 ML/MIN (>89) 72 ML/MIN (>89) Rate Total Bilirubin 1.1 MG/DL (0.2-1.0) Total Protein 6.1 GM/DL (6.4-8.2) Albumin 2.6 GM/DL (3.4-5.0) PE at Discharge Gen: calm, supine in bed, no distress, HEENT: no discharge or bleeding CV: rrr, no murmur Lungs: CTA bilaterally ABd: less distended, better BS today, no mass palpable, firm area gone. much less tender Ext: no edema, no calf pain Hospital Course Pt had NGT placed, CT scan done and serial xrays. Diet advanced and tube removed as tolerated. She was passing flatus and eating without nausea/ vomiting or abdominal pain at the time of discharge. She still had some dilated bowel loops but since feeling better and having colorectal f/u in 2 days , decided to send home per pt wishes. Complete antibiotics Pt Condition on Discharge: Good Discharge Disposition: Discharge Home Discharge Instructions DIET: Follow Instructions for: Soft Diet Additional Diet Instructions: as tolerated. Encourage fluids, avoid heavy/fatty foods. Activities you can perform: Regular-No Restrictions Luisa Najera MD May 03, 2017 15:17
[2017-05-03 16:00] VITALS: BP 136/72; PULSE 92; RESP 20; TEMP 99.1; O2SAT 99
--- NOTE | 2017-05-04 07:59 | MB ---
cc: JULIO C DIAZ MD, DAVID L. MD DATE OF CONSULTATION 04/30/2017 HISTORY OF PRESENT ILLNESS This is a 71-year-old who is three months status post low anterior resection for diverticulitis. A segment of the small bowel was resected in addition. The patient presents to the emergency room with a 24-hour history of vomiting and abdominal pain. She states she has not moved her bowels today, but she has been passing gas. PAST MEDICAL HISTORY Includes hypertension. PHYSICAL EXAMINATION She is afebrile with normal vital signs. SKIN: Her skin is warm and dry. RESPIRATORY: Respirations are normal. ABDOMEN: Her abdomen is soft, but there is moderate tenderness diffusely. RECTAL: Exam was not performed. EXTREMITIES: Normal. LABORATORY Shows a white blood cell count of 12,000, hemoglobin 13, platelets are normal. Coagulation studies are normal. Chemistries are normal. CT scan of the abdomen and pelvis shows a proximal small bowel dilation consistent with small bowel obstruction. This leads to a confluence of small bowel loops in the distal small bowel that are distended. In addition, there is some slight twisting of the mesentery in that location. There is a loculated fluid collection associated with the small bowel loops which do not contain air. There was some air in the colon. ASSESSMENT Postop small bowel obstruction. PLAN The patient was admitted to the hospital and given IV fluid bolus and NG suction treatments. She will be followed with serial x-ray. MD SONIDO Poe/MARGARITA /7:51 AM /7:43 AM
[2017-05-04] MEDS ORDERED: PANTOPRAZOLE SOD 40 MG DELAYED RELEASE TAB PO SCH (09:00)
== END 2017-05-03 17:56 | disposition home or self-care (01) | DRG 390 ==
LOC: PHED 13:18 → PHEDA 18:37 → PH3B 21:21
PROVIDERS: ADMIT Family Medicine; ATTEND Family Medicine
DX: K56.60 Unspecified intestinal obstruction (principal); E86.0 Dehydration; I10 Essential (primary) hypertension; E87.6 Hypokalemia; F32.4 Major depressive disorder, single episode, in partial remission; J45.909 Unspecified asthma, uncomplicated; E53.8 Deficiency of other specified B group vitamins; E78.5 Hyperlipidemia, unspecified; K21.9 Gastro-esophageal reflux disease without esophagitis; F17.210 Nicotine dependence, cigarettes, uncomplicated
CPT/HCPCS: 71010; 74020; 74177; 76937; 80048; 80053; 81001; 82948; 83690; 85025; 85610; 85730; 96361; 96374; 96375; 96376; C9113; J0780; J2270; J2405; J3480; J7030; Q9963; Q9967